=== PATIENT | female | born 1985 | race Caucasian/White ===

== ENCOUNTER 2021-06-26 12:13 | Emergency (ER) | payer OTHER, MEDICAID, SELFPAY ==
[2021-06-26] VITALS (15 sets, daily range): BP systolic 101–135; BP diastolic 56–75; PULSE 71–94; RESP 12–20; TEMP 36.6; O2SAT 96–100; BMI 17.7
[2021-06-26 13:16] LABS: Add Manual Diff / Slide Review NO; Basophils Absolute Auto 100 /uL (0-100); Basophils Percent Auto 0.7 % (0-2); Eosinophils Absolute Auto 100 /uL (0-450); Eosinophils Percent Auto 1.5 % (2-4); Hematocrit 37.1 % (36-46); Hemoglobin 12.6 g/dL (12.0-16.0); Lymphocytes Absolute Auto 1400 /uL (1100-4500); Lymphocytes Percent Auto 18.9 % (25-40); Mean Corpuscular HGB Conc 34.1 % (30-36); Mean Corpuscular Hemoglobin 31.8 PG (26-34); Mean Corpuscular Volume 93.2 fL (80-100); Monocytes Absolute Auto 700 /uL (0-900); Monocytes Percent Auto 8.9 % (3-14); Neutrophils Absolute Auto 5400 /uL (1500-7000); Platelet Count 204 X10^3/uL (150-400); Red Blood Cell Count 3.98 X10^6/uL (4.0-5.2); Red Cell Distribution Width 12.3 % (11.6-14.8); White Blood Cell Count 7.7 X10^3/uL (4.5-11.0)
[2021-06-26 13:18] LABS: Alanine Aminotransferase 14 IU/L (<35); Albumin 4.5 g/dL (3.5-5.0); Albumin Globulin Ratio 1.7 (1.0-2.8); Alkaline Phosphatase 37 U/L (38-126); Aspartate Aminotransferase 33 IU/L (14-36); BUN Creatinine Ratio 16.4 (6-22); Bilirubin Total 0.4 mg/dL (0.2-1.3); Blood Urea Nitrogen 12 mg/dL (7-17); Calcium 9.4 mg/dL (8.4-10.2); Carbon Dioxide 30 mmol/L (22-32); Chloride 104 mmol/L (98-107); Estimated Glomerular Filt Rate > 60.0 mL/min (>60); Globulin 2.7 g/dL (1.7-4.1); Glucose 72 mg/dL (70-100); HEMOLYSIS 17 (0-50); Lipase 60 U/L (23-300); Potassium 3.8 mmol/L (3.4-5.1); Sodium 138 mmol/L (137-145); Total Protein 7.2 g/dL (6.3-8.2)
[2021-06-26] MEDS: SODIUM CHLORIDE 0.9% 1,000 ML 1000 ML IV (13:19)
[2021-06-26 13:26] LABS: COVID19 -Nasal RAPID Negative (Negative)
--- NOTE | 2021-06-26 13:44 | DI.CT.S_ITS ---
PROCEDURE: CT ABDOMEN PELVIS W CON INDICATIONS: Abdominal pain, diarrhea TECHNIQUE: After the administration of IV contrast, axial sections were acquired from the lung bases to the pubic symphysis. Coronal and sagittal reformats were performed. For radiation dose reduction, the following was used: automated exposure control, adjustment of mA and/or kV according to patient size. COMPARISON: None. FINDINGS: Image quality: Excellent. Lung bases: Unremarkable. Heart: Heart is normal in size. ABDOMEN: Liver: No mass lesion. Gallbladder: Within normal limits without gallstones. Biliary ducts: No biliary ductal dilatation. Pancreas: Unremarkable. Spleen: Normal in size. Adrenal Glands: No adrenal nodules. Kidneys and Ureters: No hydronephrosis. Stomach and Bowel: Stomach and small bowel loops are normal in caliber and wall thickness. No evidence of appendicitis. There is mild segmental wall thickening of the distal transverse , descending, and sigmoid colon compatible with a mild colitis. Peritoneum: No abnormal intraperitoneal fluid. No free air. Ventral Wall: No hernia. Abdominal Nodes: No retroperitoneal or mesenteric adenopathy by size criteria. Vessels: Aorta and inferior vena cava are normal in size. PELVIS: Pelvic Organs: The right ovary is surgically absent. The left ovary is enlarged, measuring up to approximately 6.1 x 3.3 x 2.0 cm with multiple cysts measuring up to 2.0 cm. There is enhancement along the endometrium within the uterus predominantly in the fundus with indistinct margins. There is a small amount of endometrial fluid. Within the fundus, there is an irregular fluid collection along the right aspect of the endometrium, measuring up to approximately 2.6 x 1.2 x 1.1 cm. Bladder: Unremarkable. Pelvic Nodes: No enlarged lymph nodes. Miscellaneous: No inguinal hernias are seen. Bones: Visualized osseous structures demonstrate no suspicious focal lesions. IMPRESSION: 1. Enhancement along the endometrium within the uterus predominantly in the fundus. Findings are suspicious for an endometritis. 2. Lobulated right paracentral irregular fluid collection within the fundus is nonspecific and the differential includes a degenerating fibroid versus a possible intrauterine abscess. Recommend further evaluation with a pelvic ultrasound. 3. Enlargement of the left ovary with multiple left ovarian cysts. Recommend further evaluation with ultrasound. 4. Mild segmental wall thickening of the distal colon suggestive of a mild colitis. Dictated by: Melchor Garcia M.D. on 06/26/2021 at 14:36 Approved by: Melchor Garcia M.D. on 06/26/2021 at 14:47
--- NOTE | 2021-06-26 14:06 | ED.ABDPAIN ---
HPI - Abdominal Pain <Kenn Alexander PA-C - Last Filed: 06/26/21 20:06> General Chief Complaint: Abdominal Pain Stated Complaint: Augmentin,N/V/D Time Seen by Provider: 06/26/21 12:31 Source: patient Mode of arrival: Ambulatory History of Present Illness HPI narrative: Patient is a 35-year-old female with a history of polycystic ovarian syndrome presenting to the emergency department today for an evaluation abdominal pain, diarrhea, and nausea. Patient states that she began taking Augmentin on 05/30/2021 for a dental abscess. She states that within 3 days of taking the Augmentin she began to experience diarrhea. She states that she has experienced ongoing symptoms of nausea, diarrhea, and abdominal cramping since that time. Additionally, she notes that she has experienced episodes of nonbloody emesis over the past 2 weeks. Of note, patient states that she has experienced vaginal pain and swelling since this morning and states that she experienced an episode of ?heart flutters? yesterday. Patient denies fever, chills, chest pain, cough, shortness of breath, dysuria, diaphoresis, vaginal discharge, vaginal bleeding, or any other concerning symptoms. No further concerns were voiced at this time. Related Data Home Medications Medication Instructions Recorded Confirmed hydroxyzine HCl 10 mg tablet #0 09/05/16 Previous Rx's Medication Instructions Recorded cyclobenzaprine 10 mg tablet 10 mg PO Q8HP PRN #20 tab 09/05/16 prednisone 50 mg tablet 50 mg PO [facility] #5 tab 09/05/16 dicyclomine 20 mg tablet 20 mg PO BID #20 tab 06/26/21 ondansetron 4 mg disintegrating 4 mg PO Q6H PRN #30 tab 06/26/21 tablet Allergies Allergy/AdvReac Type Severity Reaction Status Date / Time chocolate flavor Allergy Severe throat Verified 06/26/21 13:19 [CHOCOLATE FLAVOR] swelling, dyspnea ciprofloxacin [From CIPRO] Allergy Unknown rash Verified 06/26/21 13:19 codeine [CODEINE] Allergy Unknown nausea Verified 06/26/21 13:19 doxycycline [DOXYCYCLINE] Allergy Unknown dyspnea, Verified 06/26/21 13:19 rash latex [LATEX] Allergy Unknown itchy, Verified 06/26/21 13:19 hives morphine [MORPHINE] Allergy Unknown SWELLING, Verified 06/26/21 13:19 blisters on face, mouth nose Sulfa (Sulfonamide Allergy Unknown dyspnea, Verified 06/26/21 13:19 Antibiotics) rash [SULFA (SULFONAMIDE ANTIBIOTICS)] Review of Systems <Kenn Alexander PA-C - Last Filed: 06/26/21 20:06> Constitutional Constitutional: Denies chills, Denies fatigue, Denies fever(s), Denies frequent falls, Denies lethargy and Denies weakness Eyes Eyes: Denies loss of vision ENT Ears, Nose, Mouth, and Throat: Denies dizziness and Denies neck pain Cardiovascular Cardiovascular: Denies chest pain, Reports irregular heart rhythm, Denies lightheadedness, Denies palpitations, Denies dyspnea, Denies dyspnea on exertion and Denies orthopnea Respiratory Respiratory: Denies cough, Denies dyspnea, Denies dyspnea on exertion and Denies wheezing Gastrointestinal Gastrointestinal: Reports abdominal pain, Denies change in bowel habits, Reports diarrhea, Reports nausea and Reports vomiting Genitourinary Genitourinary: Denies hematuria, Denies dysuria, Denies flank pain, Denies urinary incontinence, Denies urinary urgency, Denies vaginal discharge and Reports other (Vaginal pain and swelling) Musculoskeletal Musculoskeletal: Denies back pain, Denies muscle weakness, Denies neck pain, Denies numbness and Denies tingling Integumentary/Breasts Skin/Breast: Denies pruritus, Denies erythema, Denies rash and Denies wounds Neurologic Neurologic: Denies behavioral changes, Denies confusion, Denies dizziness, Denies frequent falls, Denies loss of vision, Denies numbness, Denies tingling and Denies weakness Psychiatric Psychiatric: Denies behavioral changes and Denies confusion Endocrine Endocrine: Denies fatigue and Denies palpitations Allergic/Immunologic Allergic/Immunologic: Denies wheezing Patient History <Kenn Alexander PA-C - Last Filed: 06/26/21 20:06> Social History Smoking Status: Never smoker Smoking Status: Never smoker Substance Use Type: does not use Exam <Kenn Alexander PA-C - Last Filed: 06/26/21 20:06> Narrative Exam Narrative: GENERAL: 35 year old patient appears stated age. Well-developed patient, in mild distress. HEAD: Atraumatic. Normocephalic. EYES: Pupils equal round and reactive. Extraocular motions intact. No scleral icterus. No injection or drainage. ENT: Nose without bleeding, purulent drainage. Throat without erythema, tonsillar hypertrophy or exudate. Airway patent. NECK: Trachea midline. Non tender CARDIOVASCULAR: Regular rate and rhythm without murmurs, gallops, or rubs. RESPIRATORY: Clear to auscultation. Breath sounds equal bilaterally. No wheezes, rales, or rhonchi. GASTROINTESTINAL: Abdomen soft, nondistended. Tenderness to palpation noted in the left upper quadrant, left lower quadrant, and right lower quadrant. No masses noted. Surgical scar noted from previous right-sided salpingo-oophorectomy in February of 2007. EXTREMITIES: No edema or joint tenderness. BACK: Nontender without deformity or crepitance. No flank tenderness. NEURO: AOx3. SKIN: No rash or erythema of visible areas Initial Vital Signs Initial Vital Signs: Vital Signs Temperature 97.8 F 06/26/21 12:25 Pulse Rate 89 06/26/21 12:25 Respiratory Rate 18 06/26/21 12:25 Blood Pressure 122/75 06/26/21 12:25 Pulse Oximetry 99 06/26/21 12:25 External Female Exam: normal external appearance Speculum Exam - Vagina: normal appearance of the vagina Speculum Exam - Cervix: normal appearance of the cervix Bimanual Exam- Vagina & Uterus: normal bimanual exam <Bonny Lynch DO - Last Filed: 06/27/21 07:01> Initial Vital Signs Initial Vital Signs: Vital Signs Temperature 97.8 F 06/26/21 12:25 Pulse Rate 89 06/26/21 12:25 Respiratory Rate 18 06/26/21 12:25 Blood Pressure 122/75 06/26/21 12:25 Pulse Oximetry 99 06/26/21 12:25 Course <Kenn Alexander PA-C - Last Filed: 06/26/21 20:06> Course Course Narrative: CBC, CMP, lipase, urine dip COVID test, CT of the abdomen pelvis, pelvic ultrasound obtained. IV a 1000 mL normal saline bolus administered, 4 mg IV Zofran administered, PO bentyl administered. Orders Ordered: Discontinued Medications Dicyclomine HCl (Dicyclomine 10 Mg Capsule) 20 mg PO NOW ONE Stop: 06/26/21 17:07 Last Admin: 06/26/21 17:29 Dose: 20 mg Documented by: BRAD Sodium Chloride (Normal Saline 0.9%) 1,000 mls @ 1,000 mls/hr IV BOLUS ONE Stop: 06/26/21 13:59 Last Infusion: 06/26/21 14:20 Dose: 0 mls/hr Documented by: Admin: 06/26/21 13:19 Dose: 1,000 mls/hr Documented by: KRISTA Ondansetron HCl (Ondansetron 4 Mg/2 Ml Inj) 4 mg IV NOW ONE Stop: 06/26/21 13:42 Last Admin: 06/26/21 14:12 Dose: 4 mg Documented by: BRAD Consultations Consultation #1: Consultation with Dr. Naik. Dr. Naik reviewed ultrasound and CT imaging and states that he will follow-up with patient in office next week. Time: 17:00 Vital Signs Vital signs: Vital Signs - 8 hr 06/26/21 12:25 06/26/21 12:36 06/26/21 12:38 Temperature 97.8 F Pulse Rate 89 84 81 Respiratory Rate 18 14 Blood Pressure 122/75 122/75 Pulse Oximetry 99 100 99 06/26/21 13:00 06/26/21 13:49 06/26/21 14:00 Temperature Pulse Rate 74 71 77 Respiratory Rate 19 15 Blood Pressure 111/70 Pulse Oximetry 98 100 100 06/26/21 14:02 06/26/21 14:30 06/26/21 15:00 Temperature Pulse Rate 74 73 94 H Respiratory Rate 12 20 19 Blood Pressure 135/65 108/57 L 112/58 L Pulse Oximetry 99 97 98 06/26/21 15:30 06/26/21 15:33 06/26/21 16:00 Temperature Pulse Rate 75 79 75 Respiratory Rate 20 18 18 Blood Pressure 108/61 120/62 Pulse Oximetry 96 98 96 06/26/21 16:30 06/26/21 17:00 06/26/21 17:01 Temperature Pulse Rate 76 83 78 Respiratory Rate 17 Blood Pressure 101/56 L 118/69 Pulse Oximetry 96 96 99 <Bonny Lynch, - Last Filed: 06/27/21 07:01> Orders Ordered: Discontinued Medications Dicyclomine HCl (Dicyclomine 10 Mg Capsule) 20 mg PO NOW ONE Stop: 06/26/21 17:07 Last Admin: 06/26/21 17:29 Dose: 20 mg Documented by: BRAD Sodium Chloride (Normal Saline 0.9%) 1,000 mls @ 1,000 mls/hr IV BOLUS ONE Stop: 06/26/21 13:59 Last Infusion: 06/26/21 14:20 Dose: 0 mls/hr Documented by: Admin: 06/26/21 13:19 Dose: 1,000 mls/hr Documented by: KRISTA Ondansetron HCl (Ondansetron 4 Mg/2 Ml Inj) 4 mg IV NOW ONE Stop: 06/26/21 13:42 Last Admin: 06/26/21 14:12 Dose: 4 mg Documented by: BRAD Vital Signs Vital signs: Vital Signs - 8 hr 06/26/21 12:25 06/26/21 12:36 06/26/21 12:38 Temperature 97.8 F Pulse Rate 89 84 81 Respiratory Rate 18 14 Blood Pressure 122/75 122/75 Pulse Oximetry 99 100 99 06/26/21 13:00 06/26/21 13:49 06/26/21 14:00 Temperature Pulse Rate 74 71 77 Respiratory Rate 19 15 Blood Pressure 111/70 Pulse Oximetry 98 100 100 06/26/21 14:02 06/26/21 14:30 06/26/21 15:00 Temperature Pulse Rate 74 73 94 H Respiratory Rate 12 20 19 Blood Pressure 135/65 108/57 L 112/58 L Pulse Oximetry 99 97 98 06/26/21 15:30 06/26/21 15:33 06/26/21 16:00 Temperature Pulse Rate 75 79 75 Respiratory Rate 20 18 18 Blood Pressure 108/61 120/62 Pulse Oximetry 96 98 96 06/26/21 16:30 06/26/21 17:00 06/26/21 17:01 Temperature Pulse Rate 76 83 78 Respiratory Rate 17 Blood Pressure 101/56 L 118/69 Pulse Oximetry 96 96 99 MDM - Abdominal Pain <Kenn Alexander PA-C - Last Filed: 06/26/21 20:06> Lab Data Result diagrams: 06/26/21 12:40 06/26/21 12:40 Labs: Lab Results 06/26/21 06/26/21 06/26/21 Range/Units 12:40 12:40 12:40 WBC 7.7 (4.5-11.0) X10^3/uL RBC 3.98 L (4.0-5.2) X10^6/uL Hgb 12.6 (12.0-16.0) g/dL Hct 37.1 (36-46) % MCV 93.2 (80-100) fL MCH 31.8 (26-34) PG MCHC 34.1 (30-36) % RDW 12.3 (11.6-14.8) % Plt Count 204 (150-400) X10^3/uL Neut % (Auto) 70.0 (50-75) % Lymph % (Auto) 18.9 L (25-40) % [place] % (Auto) 8.9 (3-14) % Eos % (Auto) 1.5 L (2-4) % Baso % (Auto) 0.7 (0-2) % Neut # (Auto) 5400 (8442-5062) /uL Lymph # (Auto) 1400 (4215-0973) /uL [place] # (Auto) 700 (0-900) /uL Eos # (Auto) 100 (0-450) /uL Baso # (Auto) 100 (0-100) /uL Sodium 138 (137-145) mmol/L Potassium 3.8 (3.4-5.1) mmol/L Chloride 104 (98-107) mmol/L Carbon Dioxide 30 (22-32) mmol/L BUN 12 (7-17) mg/dL Creatinine 0.73 (0.52-1.04) mg/dL Estimated GFR > 60.0 (>60) mL/min BUN/Creatinine Ratio 16.4 (6-22) Glucose 72 (70-100) mg/dL Calcium 9.4 (8.4-10.2) mg/dL Total Bilirubin 0.4 (0.2-1.3) mg/dL AST 33 (14-36) IU/L ALT 14 (<35) IU/L Alkaline Phosphatase 37 L (38-126) U/L Total Protein 7.2 (6.3-8.2) g/dL Albumin 4.5 (3.5-5.0) g/dL Globulin 2.7 (1.7-4.1) g/dL Albumin/Globulin Ratio 1.7 (1.0-2.8) Lipase 60 (23-300) U/L SARS-CoV-2 (PCR) Negative (Negative) Point of care testing: Point of Care Testing Test Results Negative Urine Dip Bedside Urine Glucose Negative Bedside Urine Bilirubin - Negative Bedside Urine Ketone - Negative Urine Specific Martinez 1.015 Bedside Urine Occult Blood - Negative Bedside Urine pH 6 Bedside Urine Protein - Negative Bedside Urine Urobilinogen - Negative Bedside Urine Nitrite - Negative Bedside Urine Leukocytes - Negative Esterase Imaging Data US - [place]: Radiologist's Impression: PROCEDURE:? US PELVIC COMPLETE ? INDICATIONS:? Pelvic pain ? TECHNIQUE:? Real-time scanning was performed of the pelvic organs, with image documentation.? Additional endovaginal scanning was necessary due to incomplete visualization of the adnexal and endometrial structures by transabdominal scanning.? ? COMPARISON:? None. ? FINDINGS:? ?? Uterus:? Anteverted uterus measures 10.4 x 4.4 x 6.7 cm. The myometrium is mildly heterogeneous.? No discrete uterine fibroid is seen.? The endometrium measures 10 mm combined thickness.? No discrete endometrial mass or fluid is seen. ? Ovaries:? Right ovary is surgically absent.? The left ovary measures 4.9 x 2.2 x 3.7 cm.? The ovaries have a normal sonographic appearance.? Left than 12 follicles can be seen in each ovary.? 1.9 x 1.5 x 1.8 cm simple cyst is seen in left ovary.? No adnexal masses are seen. ? Other:? No pathologic free abdominal or pelvic fluid. ? ? IMPRESSION:? 1. Mildly enlarged uterus with heterogeneous myometrial echotexture.? No discrete uterine fibroid is seen. 2. No endometrial mass or fluid. 3.? Right ovary is surgically absent.? Simple cyst in left ovary as above.? No solid appearing left ovarian lesion. ? We strive to produce accurate, complete, and clear reports of imaging services. To assist us in improving patient care, this report was composed using standard report templates and voice recognition software. Therefore, it may contain abnormal punctuation, insertions and/or omissions. Occasional wrong-word or sound-alike substitutions may occur. Though we review the report and make efforts to correct it, we do recommend that the report be read carefully in proper context to recognize any text inaccuracies. ? ? Dictated by: Andrez Joshi M.D. on 06/26/2021 at 15:58 ? ? Approved by: Andrez Joshi M.D. on 06/26/2021 at 16:00 ? CT scan - abdomen/pelvis: Radiologist's Impression: PROCEDURE:? CT ABDOMEN PELVIS W CON ? INDICATIONS:? Abdominal pain, diarrhea ? TECHNIQUE:? After the administration of IV contrast, axial sections were acquired from the lung bases to the pubic symphysis.? Coronal and sagittal reformats were performed.? For radiation dose reduction, the following was used:? automated exposure control, adjustment of mA and/or kV according to patient size. ? COMPARISON:? None. ? FINDINGS:? Image quality:? Excellent.? ? Lung bases:? Unremarkable.? ? Heart:? Heart is normal in size. ? ? ABDOMEN: Liver:? No mass lesion. Gallbladder:? Within normal limits without gallstones.? ? Biliary ducts:? No biliary ductal dilatation.? ? Pancreas:? Unremarkable.? ? Spleen:? Normal in size.? ? Adrenal Glands:? No adrenal nodules.? ? Kidneys and Ureters:? No hydronephrosis.? ? ? Stomach and Bowel:? Stomach and small bowel loops are normal in caliber and wall thickness.? No evidence of appendicitis.? There is mild segmental wall thickening of the distal transverse , descending, and sigmoid colon compatible with a mild colitis.? Peritoneum:? No abnormal intraperitoneal fluid.? No free air.? ? Ventral Wall: ? No hernia.? Abdominal Nodes:? No retroperitoneal or mesenteric adenopathy by size criteria.? Vessels:? Aorta and inferior vena cava are normal in size.? ? PELVIS: Pelvic Organs:? The right ovary is surgically absent.? The left ovary is enlarged, measuring up to approximately 6.1 x 3.3 x 2.0 cm with multiple cysts measuring up to 2.0 cm.? There is enhancement along the endometrium within the uterus predominantly in the fundus with indistinct margins.? There is a small amount of endometrial fluid.? Within the fundus, there is an irregular fluid collection along the right aspect of the endometrium, measuring up to approximately 2.6 x 1.2 x 1.1 cm.? Bladder:? Unremarkable.? ? Pelvic Nodes: No enlarged lymph nodes.? Miscellaneous: No inguinal hernias are seen. ? ? ? Bones:? Visualized osseous structures demonstrate no suspicious focal lesions. ? IMPRESSION:? ? 1. Enhancement along the endometrium within the uterus predominantly in the fundus.? Findings are suspicious for an endometritis. ? 2. Lobulated right paracentral irregular fluid collection within the fundus is nonspecific and the differential includes a degenerating fibroid versus a possible intrauterine abscess.? Recommend further evaluation with a pelvic ultrasound. ? 3. Enlargement of the left ovary with multiple left ovarian cysts.? Recommend further evaluation with ultrasound. ? 4. Mild segmental wall thickening of the distal colon suggestive of a mild colitis.? ? ? Dictated by: Melchor Garcia M.D. on 06/26/2021 at 14:36 ? ? Approved by: Melchor Garcia M.D. on 06/26/2021 at 14:47 ? MDM Narrative Medical decision making narrative: To consider appendicitis versus diverticulitis versus ovarian cyst versus endometriosis versus endometritis versus pelvic inflammatory disease. Overall, physical examination, history, lab studies, and imaging obtained in the emergency department today were reassuring. Discussed results of lab studies and imaging with patient informed her that no acute abnormality was identified today that require emergent intervention. Additionally, informed the patient that pelvic exam and bimanual examination performed were unremarkable. Discussed with patient plan to have her follow-up with Dr. Naik. Patient expresses understanding and agrees to plan. At this time she states she feels comfortable being discharged home. Strict return precautions were discussed with the patient prior to discharge. At this time patient is stable and ready for discharge. <Bonny Lynch, DO - Last Filed: 06/27/21 07:01> Lab Data Labs: Lab Results 06/26/21 06/26/21 06/26/21 Range/Units 12:40 12:40 12:40 WBC 7.7 (4.5-11.0) X10^3/uL RBC 3.98 L (4.0-5.2) X10^6/uL Hgb 12.6 (12.0-16.0) g/dL Hct 37.1 (36-46) % MCV 93.2 (80-100) fL MCH 31.8 (26-34) PG MCHC 34.1 (30-36) % RDW 12.3 (11.6-14.8) % Plt Count 204 (150-400) X10^3/uL Neut % (Auto) 70.0 (50-75) % Lymph % (Auto) 18.9 L (25-40) % [place] % (Auto) 8.9 (3-14) % Eos % (Auto) 1.5 L (2-4) % Baso % (Auto) 0.7 (0-2) % Neut # (Auto) 5400 (2718-4170) /uL Lymph # (Auto) 1400 (2456-8438) /uL [place] # (Auto) 700 (0-900) /uL Eos # (Auto) 100 (0-450) /uL Baso # (Auto) 100 (0-100) /uL Sodium 138 (137-145) mmol/L Potassium 3.8 (3.4-5.1) mmol/L Chloride 104 (98-107) mmol/L Carbon Dioxide 30 (22-32) mmol/L BUN 12 (7-17) mg/dL Creatinine 0.73 (0.52-1.04) mg/dL Estimated GFR > 60.0 (>60) mL/min BUN/Creatinine Ratio 16.4 (6-22) Glucose 72 (70-100) mg/dL Calcium 9.4 (8.4-10.2) mg/dL Total Bilirubin 0.4 (0.2-1.3) mg/dL AST 33 (14-36) IU/L ALT 14 (<35) IU/L Alkaline Phosphatase 37 L (38-126) U/L Total Protein 7.2 (6.3-8.2) g/dL Albumin 4.5 (3.5-5.0) g/dL Globulin 2.7 (1.7-4.1) g/dL Albumin/Globulin Ratio 1.7 (1.0-2.8) Lipase 60 (23-300) U/L SARS-CoV-2 (PCR) Negative (Negative) Point of care testing: Point of Care Testing Test Results Negative Urine Dip Bedside Urine Glucose Negative Bedside Urine Bilirubin - Negative Bedside Urine Ketone - Negative Urine Specific Martinez 1.015 Bedside Urine Occult Blood - Negative Bedside Urine pH 6 Bedside Urine Protein - Negative Bedside Urine Urobilinogen - Negative Bedside Urine Nitrite - Negative Bedside Urine Leukocytes - Negative Esterase Discharge Plan Departure Patient Disposition: Home Clinical Impression: Abdominal pain, Pelvic pain Instructions: DI for Abdominal Pain-Adult Activity Restrictions/Additional Instructions: *You have been diagnosed with abdominal pain, pelvic pain *What to do: *Please continue to take your regular medications as directed. [X] New medication prescriptions sent to your pharmacy: [facility] [ ] New medication written as a paper prescription [ ] No new medications given Ultrasound and CT imaging obtained in the emergency department today returned reassuring without any signs of acute abnormality that would require emergent intervention. I had a consultation with Dr. Naik (OBGYN) and he would like to follow-up with you in his office sometime next week. If you do not hear from his office you may call the office number at . I have prescribed a course of medications to help with your abdominal cramping (Leo) and nausea (Maddison). I recommend following up with the primary care provider within the next to 3 days for further evaluation. Do not hesitate to return to the emergency department if you experience worsening pain, increased vaginal discharge, fever, or any other concerning symptoms. *Please follow up with your primary care provider in 2-3 days, call for an appointment. Let them know you were seen in the Emergency Department and that we ask that you be seen in follow up. We will electronically transmit a record of today's note if your PCP is in our system *If you do not have a primary care provider please contact the [facility] Resource line at [phone]. They will ask some questions about your medical history and help get you set up with a doctor in the community. *Return to Emergency Department if you should have any new, worsening or concerning symptoms, such as fever greater than 101 F, shaking chills, worsening pain, persistent vomiting or other bothersome symptoms. Prescriptions: New dicyclomine 20 mg tablet 20 mg PO BID Qty: 20 0RF ondansetron 4 mg tablet,disintegrating 4 mg PO Q6H PRN (Reason: nausea and vomiting) Qty: 30 0RF No Action hydroxyzine HCl 10 mg tablet Qty: 0 0RF cyclobenzaprine 10 MG tablet 10 mg PO Q8HP PRNQty: 20 0RF prednisone 50 MG tablet 50 mg PO [facility] Qty: 5 0RF <Bonny Lynch DO - Last Filed: 06/27/21 07:01> Cosign ED Attending Cosignature Attestation: I was immediately available in the department for consultation. Documentation has been reviewed. I agree with assessment and plan.
[2021-06-26] MEDS: ONDANSETRON 4 MG/2 ML INJ IV (14:12)
--- NOTE | 2021-06-26 15:20 | DI.US.S_ITS ---
PROCEDURE: US PELVIC COMPLETE INDICATIONS: Pelvic pain TECHNIQUE: Real-time scanning was performed of the pelvic organs, with image documentation. Additional endovaginal scanning was necessary due to incomplete visualization of the adnexal and endometrial structures by transabdominal scanning. COMPARISON: None. FINDINGS: Uterus: Anteverted uterus measures 10.4 x 4.4 x 6.7 cm. The myometrium is mildly heterogeneous. No discrete uterine fibroid is seen. The endometrium measures 10 mm combined thickness. No discrete endometrial mass or fluid is seen. Ovaries: Right ovary is surgically absent. The left ovary measures 4.9 x 2.2 x 3.7 cm. The ovaries have a normal sonographic appearance. Left than 12 follicles can be seen in each ovary. 1.9 x 1.5 x 1.8 cm simple cyst is seen in left ovary. No adnexal masses are seen. Other: No pathologic free abdominal or pelvic fluid. IMPRESSION: 1. Mildly enlarged uterus with heterogeneous myometrial echotexture. No discrete uterine fibroid is seen. 2. No endometrial mass or fluid. 3. Right ovary is surgically absent. Simple cyst in left ovary as above. No solid appearing left ovarian lesion. We strive to produce accurate, complete, and clear reports of imaging services. To assist us in improving patient care, this report was composed using standard report templates and voice recognition software. Therefore, it may contain abnormal punctuation, insertions and/or omissions. Occasional wrong-word or sound-alike substitutions may occur. Though we review the report and make efforts to correct it, we do recommend that the report be read carefully in proper context to recognize any text inaccuracies. Dictated by: Andrez Joshi M.D. on 06/26/2021 at 15:58 Approved by: Andrez Joshi M.D. on 06/26/2021 at 16:00
--- NOTE | 2021-06-26 17:03 | PC.NURSE ---
[id number] set up for pelvic exam and radha vitcor for exam. swabs obtained and walked to lab. pt tolerated exam well no distress
[2021-06-26] MEDS: DICYCLOMINE 10 MG CAPSULE 20 MG PO (17:29)
== END 2021-06-26 17:35 | disposition home or self-care (01) ==
PROVIDERS: Emergency Provider Physician Assistant
DX: R10.30 Lower abdominal pain, unspecified (principal); R10.12 Left upper quadrant pain; R10.2 Pelvic and perineal pain; R11.2 Nausea with vomiting, unspecified; R19.7 Diarrhea, unspecified; R00.2 Palpitations; Z20.822 Contact with and (suspected) exposure to COVID-19
CPT/HCPCS: 36415; 74177; 76830; 76856; 80053; 81003; 81025; 83690; 85025; 87635; 93005; 93010; 96360; 99285; C9803; J2405; Q9967

== ENCOUNTER → 2023-12-20 11:56 | Outpatient (CLI) | payer OTHER, SELFPAY ==
--- NOTE | 2023-12-20 | DI.MRI.S_ITS ---
PROCEDURE: MR CERVICAL SPINE WO CON INDICATIONS: Cervicalgia TECHNIQUE: Noncontrast sagittal T1 spin echo and T2 fast spin echo, sagittal STIR, foraminal oblique sagittal T2 fast spin echo, and axial gradient echo or T2 fast spin echo through the cervical spine. COMPARISON: None. FINDINGS: Image quality: Excellent. Alignment and Curvature: There is mild straightening of normal cervical lordosis. Bone Marrow: Likely Modic type 2 degenerative endplate changes are noted at C5-6 level. No other area of abnormal marrow signal. No suspicious intraosseous lesion. Spinal Cord: Visualized spinal cord has normal size and signal. No cerebellar tonsillar herniation. Paraspinous Soft Tissues: No paravertebral masses. Prevertebral soft tissues are normal in thickness. C2-C3: Normal appearance. C3-C4: Normal appearance. C4-C5: Loss of disc signal is seen. Diffuse disc bulge and bilateral uncovertebral hypertrophic changes are noted causing mild central canal stenosis and moderate right-sided neural foraminal narrowing. C5-C6: Loss of disc height and disc signal. Broad-based disc bulge and bilateral uncovertebral hypertrophic changes causing moderate central canal stenosis and moderate to severe right-sided neural foraminal narrowing. [id number] left-sided neural foraminal narrowing is also seen. There is likely compression of exiting bilateral C6 nerve roots. C6-C7: Central to left-sided disc herniation and extrusion causing moderate central canal stenosis and severe narrowing of left neural recess. C7-T1: Normal appearance. IMPRESSION: 1. Central to left-sided disc herniation and extrusion at C6-7 level causing moderate central canal stenosis and severe narrowing of left neural recess. 2. Obev-du-jateiwup degenerative disc disease at C4-5 and C5-6 levels causing various degrees of central canal stenosis and bilateral neural foraminal narrowing as described above. 3. No marrow edema. No acute compression fracture or significant spondylolisthesis. Straightening of normal cervical lordosis. 4. No abnormal cervical spinal cord signal. Dictated by: Andrez Joshi M.D. on 12/20/2023 at 18:03 Approved by: Andrez Joshi M.D. on 12/20/2023 at 18:09
== END ==
LOC: MRI 11:58
PROVIDERS: Referring Provider Neurological Surgery; Visit Provider Neurological Surgery
DX: M50.223 Other cervical disc displacement at C6-C7 level (principal); M50.321 Other cervical disc degeneration at C4-C5 level; M48.02 Spinal stenosis, cervical region
CPT/HCPCS: 72141

== ENCOUNTER → 2024-03-23 16:20 | Outpatient (CLI) | payer BC, SELFPAY ==
[2024-03-23 17:07] LABS: Influenza A - CEPHEID Flu A NEGATIVE (NEGATIVE); Influenza B - CEPHEID Flu B NEGATIVE (NEGATIVE); Respiratory Syncytial Virus Negative (Negative)
[2024-03-23 17:33] LABS: COVID-19 CEPHEID 4-PLEX PCR Negative (Negative)
== END ==
PROVIDERS: Visit Provider Nurse Practitioner Family
DX: R05.1 Acute cough (principal); J02.9 Acute pharyngitis, unspecified; R09.81 Nasal congestion
CPT/HCPCS: 0241U; 87070

== ENCOUNTER 2024-10-02 19:43 | Emergency (ER) | payer SELFPAY ==
[2024-10-02 19:46] VITALS: BP 121/79; PULSE 79; RESP 18; TEMP 36.8; O2SAT 99; BMI 18.6
[2024-10-02] MEDS: ONDANSETRON 4 MG/2 ML INJ IV ×2 (20:23→23:22)
[2024-10-02 20:34] LABS: Add Manual Diff / Slide Review NO; Basophils Absolute Auto 0 /uL (0-100); Basophils Percent Auto 0.2 % (0-2); Eosinophils Absolute Auto 0 /uL (0-450); Eosinophils Percent Auto 0.2 % (2-4); Hematocrit 39.8 % (36-46); Hemoglobin 13.6 g/dL (12.0-16.0); Lymphocytes Absolute Auto 1200 /uL (1100-4500); Lymphocytes Percent Auto 11.7 % (25-40); Mean Corpuscular HGB Conc 34.3 % (30-36); Mean Corpuscular Hemoglobin 31.9 PG (26-34); Monocytes Absolute Auto 800 /uL (0-900); Monocytes Percent Auto 7.9 % (3-14); Neutrophils Absolute Auto 8000 /uL (1500-7000); Platelet Count 232 X10^3/uL (150-400); Red Blood Cell Count 4.27 X10^6/uL (4.0-5.2); Red Cell Distribution Width 12.7 % (11.6-14.8)
[2024-10-02 20:42] LABS: Alanine Aminotransferase 15 IU/L (<35); Albumin 4.9 g/dL (3.5-5.0); Albumin Globulin Ratio 1.6 (1.0-2.8); Alkaline Phosphatase 46 U/L (38-126); Aspartate Aminotransferase 29 IU/L (14-36); BUN Creatinine Ratio 26.3 (6-22); Bilirubin Total 0.8 mg/dL (0.2-1.3); Blood Urea Nitrogen 15 mg/dL (7-17); Calcium 9.5 mg/dL (8.4-10.2); Carbon Dioxide 20 mmol/L (22-32); Chloride 103 mmol/L (98-107); Estimated Glomerular Filt Rate > 60 mL/min (>60); Globulin 3.1 g/dL (1.7-4.1); Glucose 92 mg/dL (70-99); HEMOLYSIS 20 (0-50); Potassium 3.8 mmol/L (3.4-5.1); Sodium 135 mmol/L (137-145)
--- NOTE | 2024-10-02 20:44 | DI.US.S_ITS ---
PROCEDURE: US OB <= 14 WEEKS FETUS INDICATIONS: bleeding OUTSIDE/PRIOR DATING DATA: Last menstrual period (LMP): 09/10/2024. LMP-based estimated date of delivery (MEAGHAN): 06/17/2025. First dating scan (date and location): 10/02/2024. Estimated date of delivery (MEAGHAN) from first dating scan: 05/06/2025. The calculations are made using the ultrasound MEAGHAN of 05/06/2025. TECHNIQUE: Real-time scanning was performed of the fetus and maternal pelvic organs, with image documentation. Endovaginal scanning was also performed to better visualize the fetus and maternal ovaries. COMPARISON: None. FINDINGS: Embryo: [place]-rump length measuring 2.5 cm, gestational age 9 weeks 1 day. Heart rate: 175 bpm. Maternal organs: Ovaries right ovary is absent. Left ovary is unremarkable. IMPRESSION: 1. Campbell living intrauterine at 9 weeks 1 day based on today's crown rump length. 2. No perigestational hemorrhage. We strive to produce accurate, complete, and clear reports of imaging services. To assist us in improving patient care, this report was composed using standard report templates and voice recognition software. Therefore, it may contain abnormal punctuation, insertions and/or omissions. Occasional wrong-word or sound-alike substitutions may occur. Though we review the report and make efforts to correct it, we do recommend that the report be read carefully in proper context to recognize any text inaccuracies. Dictated by: Rajan Benitez M.D. on 10/02/2024 at 23:12 Approved by: Rajan Benitez M.D. on 10/02/2024 at 23:16
[2024-10-02 21:02] LABS: Bacteria Urine Moderate (10-30); Mucus Urine 2+ (Negative); RBC Urine 0-1/HPF (0-5/HPF); Squamous Epithelial Cell Urine 5-10 /HPF (0-5/HPF); Urine Volume 10mL (spun); WBC Urine 0-1/HPF (0-5/HPF)
[2024-10-02 21:03] LABS: Culture Indicated Urine Cult Not Indicated
[2024-10-02 22:16] LABS: HCG Quantitative /Beta subunit 176960 mIU/mL
[2024-10-02 23:24] VITALS: BP 121/73; PULSE 84; RESP 18; O2SAT 96
[2024-10-02 23:30] VITALS: BP 115/59; PULSE 78; O2SAT 96
--- NOTE | 2024-10-02 23:34 | ED.FEMALEGU ---
HPI - Female Genitourinary General Chief complaint: Vaginal Bleeding Stated complaint: vaginal bleeding x21 days, body aches, sob Time Seen by Provider: 10/02/24 22:53 Source: patient Mode of arrival: Ambulatory History of Present Illness HPI Narrative: Patient is a 39-year-old female history of depression presenting today with variety of symptoms. Reports that she has had some nausea vomiting started last night unable to keep anything down now. Having some mild abdominal cramping but no significant pain. Also reports vaginal bleeding for about 21 days. Says it was really heavy on the 1st day going through 2 pads or tampons an hour but then it slow down and was kind of off and on. Has had persistent spotting ever since. She has PCOS. She has a positive test in the ED but unaware she was . Reports that she occasionally smoke marijuana Related Data Previous Rx's Medication Instructions Recorded benzonatate 200 mg capsule 200 mg PO BID PRN cough #28 caps 03/23/24 ondansetron 4 mg disintegrating 4 mg PO Q8H PRN nausea and 10/03/24 tablet vomiting #10 tabs Allergies Allergy/AdvReac Type Severity Reaction Status Date / Time codeine [CODEINE] Allergy Unknown nausea Verified 03/23/24 16:18 doxycycline [DOXYCYCLINE] Allergy Unknown dyspnea, Verified 03/23/24 16:18 rash latex [LATEX] Allergy Unknown itchy, Verified 03/23/24 16:18 hives Sulfa (Sulfonamide Allergy Unknown dyspnea, Verified 03/23/24 16:18 Antibiotics) rash [SULFA (SULFONAMIDE ANTIBIOTICS)] Patient History Medical History PTSD (post-traumatic stress disorder) (~2014) Depression (~2014) Anxiety (~2014) Incomplete Surgical History Anesthesia History of right oophorectomy (~2006) Exam Initial Vital Signs Initial Vital Signs: Vital Signs Temperature 98.3 F 10/02/24 19:46 Pulse Rate 79 10/02/24 19:46 Respiratory Rate 18 10/02/24 19:46 Blood Pressure 121/79 10/02/24 19:46 Pulse Oximetry 99 10/02/24 19:46 Oxygen Delivery Method Room Air 10/02/24 19:46 GENERAL: Alert 39-year-old female and in no acute distress. HEENT: Head atraumatic,EOMI, pupils reactive, face symmetric, moist mucous membranes CARDIOVASCULAR: Regular rate and rhythm without murmurs, rubs or gallops. RESPIRATORY: Breath sounds equal bilaterally, no wheezes rales or rhonchi. ABDOMEN: Soft, nontender. Normoactive bowel sounds all 4 quadrants. No guarding or rebound. EXTREMITIES: Normal range of motion, no clubbing or edema. Neurovascularly intact NEUROLOGICAL: Alert and oriented x4.Normal gait and speech. Cranial nerves II through XII grossly intact. SKIN: Warm, dry, no laceration, no petechiae, no rashes or lesions. Course Orders Ordered: ED Orders 10/02/24 20:16 Complete Blood Count AUTO DIFF Stat Comprehensive Metabolic Panel Stat HCG Quantitative /Beta subunit Stat Type and Screen Stat 10/02/24 20:39 Urine Microscopic Stat 10/02/24 20:44 US OB <= 14 weeks fetus Stat Discontinued Medications Sodium Chloride (Normal Saline 0.9%) 1,000 mls @ 1,000 mls/hr IV BOLUS ONE Stop: 10/03/24 00:41 Last Infusion: 10/03/24 00:43 Dose: Infused Documented By: Admin: 10/02/24 23:58 Dose: 1,000 mls/hr Documented By: MARY Ondansetron HCl (Ondansetron 4 Mg/2 Ml Inj) 4 mg IV NOW PRN PRN Reason: Nausea And Vomiting Last Admin: 10/02/24 20:23 Dose: 4 mg Documented By: MARY Ondansetron HCl (Ondansetron 4 Mg Odt) 4 mg PO NOW PRN PRN Reason: Nausea And Vomiting Ondansetron HCl (Ondansetron 4 Mg/2 Ml Inj) 4 mg IV NOW ONE Stop: 10/02/24 23:09 Last Admin: 10/02/24 23:22 Dose: 4 mg Documented By: MARY Vital Signs Vital signs: Vital Signs - 8 hr 10/02/24 19:46 10/02/24 23:24 10/02/24 23:24 Temperature 98.3 F Pulse Rate 79 84 Respiratory Rate 18 18 Blood Pressure 121/79 121/73 Pulse Oximetry 99 96 Oxygen Delivery Method Room Air Room Air 10/02/24 23:30 10/02/24 23:30 10/02/24 23:45 Temperature Pulse Rate 78 Respiratory Rate 18 Blood Pressure 115/59 L 109/66 Pulse Oximetry 96 Oxygen Delivery Method 10/02/24 23:45 10/03/24 00:00 10/03/24 00:00 Temperature Pulse Rate 77 73 Respiratory Rate Blood Pressure 112/59 L Pulse Oximetry 95 94 Oxygen Delivery Method 10/03/24 00:15 10/03/24 00:15 Temperature Pulse Rate 77 Respiratory Rate 17 Blood Pressure 103/59 L Pulse Oximetry 98 Oxygen Delivery Method Room Air MDM - Female Genitourinary Lab Data 10/02/24 20:16 10/02/24 20:16 Labs: Lab Results 10/02/24 10/02/24 Range/Units 20:16 20:39 WBC 10.0 (4.5-11.0) X10^3/uL RBC 4.27 (4.0-5.2) X10^6/uL Hgb 13.6 (12.0-16.0) g/dL Hct 39.8 (36-46) % MCV 93.0 (80-100) fL MCH 31.9 (26-34) PG MCHC 34.3 (30-36) % RDW 12.7 (11.6-14.8) % Plt Count 232 (150-400) X10^3/uL Neut % (Auto) 80.0 H (50-75) % Lymph % (Auto) 11.7 L (25-40) % [place] % (Auto) 7.9 (3-14) % Eos % (Auto) 0.2 L (2-4) % Baso % (Auto) 0.2 (0-2) % Neut # (Auto) 8000 H (3117-9961) /uL Lymph # (Auto) 1200 (5969-1626) /uL [place] # (Auto) 800 (0-900) /uL Eos # (Auto) 0 (0-450) /uL Baso # (Auto) 0 (0-100) /uL Sodium 135 L (137-145) mmol/L Potassium 3.8 (3.4-5.1) mmol/L Chloride 103 (98-107) mmol/L Carbon Dioxide 20 L (22-32) mmol/L BUN 15 (7-17) mg/dL Creatinine 0.57 (0.52-1.04) mg/dL Estimated GFR > 60 (>60) mL/min BUN/Creatinine Ratio 26.3 H (6-22) Glucose 92 (70-99) mg/dL Calcium 9.5 (8.4-10.2) mg/dL Total Bilirubin 0.8 (0.2-1.3) mg/dL AST 29 (14-36) IU/L ALT 15 (<35) IU/L Alkaline Phosphatase 46 (38-126) U/L Total Protein 8.0 (6.3-8.2) g/dL Albumin 4.9 (3.5-5.0) g/dL Globulin 3.1 (1.7-4.1) g/dL Albumin/Globulin Ratio 1.6 (1.0-2.8) HCG, Quant [id number] mIU/mL Urine RBC 0-1/hpf (0-5/HPF) Urine WBC 0-1/hpf (0-5/HPF) Ur Squamous Epith Cells 5-10 /hpf H (0-5/HPF) Urine Bacteria Moderate (10-30) H (None) Urine Mucus 2+ H (Negative) Ur Culture Indicated? Cult not indicated Vol Urine Centrifuged 10ml (spun) Blood Type A Positive Antibody Screen Negative Point of Care Testing Test Results Positive Urine Dip Bedside Urine Glucose Negative Bedside Urine Bilirubin - Negative Bedside Urine Ketone +++ 80 Urine Specific [place] 1.030 Bedside Urine Occult Blood +/- Bedside Urine pH 6.0 Bedside Urine Protein +/- 15 Bedside Urine Urobilinogen - Negative Bedside Urine Nitrite - Negative Bedside Urine Leukocytes - Negative Esterase Imaging Data US - OB: Radiologist's Impression: PROCEDURE: US OB <= 14 WEEKS FETUS INDICATIONS: bleeding OUTSIDE/PRIOR DATING DATA: Last menstrual period (LMP): 09/10/2024. LMP-based estimated date of delivery (MEAGHAN): 06/17/2025. First dating scan (date and location): 10/02/2024. Estimated date of delivery (MEAGHAN) from first dating scan: 05/06/2025. The calculations are made using the ultrasound MEAGHAN of 05/06/2025. TECHNIQUE: Real-time scanning was performed of the fetus and maternal pelvic organs, with image documentation. Endovaginal scanning was also performed to better visualize the fetus and maternal ovaries. COMPARISON: None. FINDINGS: Embryo: [place]-rump length measuring 2.5 cm, gestational age 9 weeks 1 day. Heart rate: 175 bpm. Maternal organs: Ovaries right ovary is absent. Left ovary is unremarkable. IMPRESSION: 1. Campbell living intrauterine at 9 weeks 1 day based on today's crown rump length. 2. No perigestational hemorrhage. We strive to produce accurate, complete, and clear reports of imaging services. To assist us in improving patient care, this report was composed using standard report templates and voice recognition software. Therefore, it may contain abnormal punctuation, insertions and/or omissions. Occasional wrong-word or sound-alike substitutions may occur. Though we review the report and make efforts to correct it, we do recommend that the report be read carefully in proper context to recognize any text inaccuracies. Dictated by: Rajan Benitez M.D. on 10/02/2024 at 23:12 MDM Narrative Medical decision making narrative: Patient 39-year-old female history of PCOS PTSD presenting to day with vaginal bleeding nausea vomiting. She was found to be in the ED which she did not know. Vomiting only started last night she did not have any other symptoms. She has been having on and off vaginal bleeding for the last 21 days. Sounds as though it was heavy a couple of weeks ago but now is just spotting daily. Mild abdominal cramping no severe tenderness Ultrasound confirms living IUP 9 weeks and 1 day with no perigestational hemorrhage HCG is 176,960 A positive no need for RhoGAM Other blood work within normal limits Patient has received a Zofran and a L of fluid. She was tolerating some adrian brown at this time. Discussion with her about following up with Ob pelvic rest until bleeding stops. Appropriate medications during . At this time continue Prozac but talk with OB about it. Discharge Plan Departure Patient Disposition: Home Clinical Impression: , Bleeding in early Instructions: DI for -- Discomforts and Remedies, DI for Vaginal Bleeding During Activity Restrictions/Additional Instructions: *You have been diagnosed with vaginal bleeding with *What to do: At this time you are currently 9 weeks , due date approximately 05/06/2025 HCG 176,960 No Smoking marijuana or cigarettes no alcohol use *Continue to take medications as directed vitamins daily Continue Prozac but talk with your OB No ibuprofen/NSAIDS If you should have pain or discomfort okay to take Tylenol 1000 mg every 6 hours Zofran 4 mg every 8 hours only if needed for severe nausea or vomiting--> [facility] *Follow up with your primary care provider in 2-3 days or call [phone] *Return to ER if you should have persistent vomiting dizziness lightheadedness increased vaginal bleeding or any new, worsening or concerning symptoms Prescriptions: New ondansetron 4 mg tablet,disintegrating 4 mg PO Q8H PRN (Reason: nausea and vomiting) Qty: 10 0RF No Action benzonatate 200 mg capsule 200 mg PO BID PRN (Reason: cough) Qty: 28 0RF Referrals: Miscellaneous,Doctor, MD [Primary Care Provider] - Eloina Luna MD [Physician] - Haley Benjamin MD [Physician] - Karon Aaron MD [Physician] - Amy Fraser DO [Physician] - Papo Naik MD [Physician] - Stand Alone Forms: Patient Portal/API/Survey
[2024-10-02 23:45] VITALS: BP 109/66; PULSE 77; RESP 18; O2SAT 95
[2024-10-02] MEDS: SODIUM CHLORIDE 0.9% 1,000 ML 1000 ML IV (23:58)
[2024-10-03] VITALS: BP 112/59; PULSE 73; O2SAT 94
[2024-10-03 00:15] VITALS: BP 103/59; PULSE 77; RESP 17; O2SAT 98
== END 2024-10-03 00:44 | disposition home or self-care (01) ==
PROVIDERS: Emergency Provider Emergency Medicine
DX: O21.9 Vomiting of pregnancy, unspecified (principal); R10.9 Unspecified abdominal pain; F12.90 Cannabis use, unspecified, uncomplicated
CPT/HCPCS: 76801; 80053; 81003; 81015; 81025; 84702; 85025; 86850; 86900; 86901; 96361; 96374; 96376; 99283; 99284; J2405

== ENCOUNTER → 2024-10-19 09:47 | Outpatient (CLI) | payer OTHER, SELFPAY ==
[2024-10-19 14:57] LABS: Urine N gonorrhoeae NOT DETECTED
[2024-10-19 15:42] LABS: Urine Chlamydia NOT DETECTED
== END ==
PROVIDERS: Visit Provider Obstetrics & Gynecology
DX: Z11.3 Encounter for screening for infections with a predominantly sexual mode of transmission (principal)
CPT/HCPCS: 87491; 87591

== ENCOUNTER → 2024-10-19 10:24 | Outpatient (CLI) | payer OTHER, SELFPAY ==
[2024-10-19 11:10] LABS: Add Manual Diff / Slide Review NO; Basophils Absolute Auto 0 /uL (0-100); Basophils Percent Auto 0.7 % (0-2); Eosinophils Absolute Auto 100 /uL (0-450); Hematocrit 36.5 % (36-46); Hemoglobin 12.7 g/dL (12.0-16.0); Lymphocytes Absolute Auto 1100 /uL (1100-4500); Lymphocytes Percent Auto 17.4 % (25-40); Mean Corpuscular HGB Conc 34.8 % (30-36); Mean Corpuscular Hemoglobin 32.3 PG (26-34); Mean Corpuscular Volume 92.8 fL (80-100); Monocytes Absolute Auto 600 /uL (0-900); Monocytes Percent Auto 8.9 % (3-14); Neutrophils Absolute Auto 4500 /uL (1500-7000); Platelet Count 214 X10^3/uL (150-400); Red Blood Cell Count 3.94 X10^6/uL (4.0-5.2); Red Cell Distribution Width 12.5 % (11.6-14.8); White Blood Cell Count 6.3 X10^3/uL (4.5-11.0)
[2024-10-19 11:18] LABS: Hemoglobin A1C% w Est Avg Glu 4.7 % (4.0-6.0)
[2024-10-19 11:31] LABS: Natera Collection Specimen Collected
[2024-10-19 12:07] LABS: Hepatitis B Surface Antigen NEGATIVE s/c (NEGATIVE); Rubella Antibody IgG 13.2 IU/mL (>15)
[2024-10-19 12:20] LABS: HIV 1 & 2 Ab/Ag 4th Gen Combo NEGATIVE (NEGATIVE); Hep C Virus Ab w/Reflex Quant NEGATIVE s/c (NEGATIVE)
[2024-10-20 04:38] LABS: RPR Screen Non Reactive (Non Reactive)
[2024-10-20 09:40] LABS: Varicella IgG Antibody Reactive (Non Reactive)
== END ==
PROVIDERS: PCP Family Medicine; Referring Provider Obstetrics & Gynecology; Visit Provider Obstetrics & Gynecology
DX: Z34.91 Encounter for supervision of normal pregnancy, unspecified, first trimester (principal); E28.2 Polycystic ovarian syndrome
CPT/HCPCS: 36415; 80055; 83036; 86787; 86803; 86850; 86900; 86901; 87389; 87491; 87591

== ENCOUNTER → 2024-10-23 13:49 | Outpatient (CLI) | payer OTHER, SELFPAY ==
[2024-10-23 16:23] LABS: HCG Quantitative /Beta subunit 116540 mIU/mL
== END ==
PROVIDERS: PCP Family Medicine; Referring Provider Family Medicine; Visit Provider Obstetrics & Gynecology
DX: O20.9 Hemorrhage in early pregnancy, unspecified (principal)
CPT/HCPCS: 36415; 84702; 87086

== ENCOUNTER → 2024-12-18 12:00 | Outpatient (CLI) | payer OTHER, SELFPAY ==
--- NOTE | 2024-12-18 12:01 | DI.US.S_ITS ---
PROCEDURE: US OB >= 14 WEEKS FETUS INDICATIONS: anatomy scan OUTSIDE/PRIOR DATING DATA: Last menstrual period (LMP): September 10, 2024. LMP-based estimated date of delivery (MEAGHAN): June 17, 2025. First dating scan (date and location): October 02, 2024. Estimated date of delivery (MEAGHAN) from first dating scan: May 06, 2025. The calculations are made using the ultrasound MEAGHAN of May 06, 2025. TECHNIQUE: Real-time scanning was performed of the fetus, with image documentation and biometric measurements. Endovaginal scanning: Not performed COMPARISON: [facility], OB <= 14 WEEKS FETUS, 10/02/2024, 22:24. FINDINGS: General: A single living intrauterine gestation is present. Presentation: Breech. Placenta: Placental position is anterior fundal , without previa. Amniotic fluid index: 9.8 cm, normal range is 5-24 cm. Single deepest vertical pocket is 3.2 cm. heart rate: 157 beats per minute. Maternal cervical canal: 4.7 cm long. Normal lower limit is 2.5 cm. biometrics: Biparietal diameter: 4.3 cm, 19 weeks and 0 days Head circumference: 17.2 cm, 19 weeks and 5 days Abdominal circumference: 16.0 cm, 21 weeks and 1 day Femur length: 3.2 cm, 20 weeks and 0 days Clinically estimated gestational age: 20 weeks and 1 day Composite gestational age from present scan: 20 weeks and 0 days Estimated weight and percentile: 356 g, 64th percentile Anatomic survey: Neuro: Ventricles are non-dilated at less than 10 mm. Cisterna magna is normal at 3-11 mm. Cerebellum is normal in size and morphology. Nuchal skin fold: Normal at less than 6 mm between 14-21 weeks gestational age. Face: Nose and lips, facial profile are not well visualized. Spine: No evidence for spina bifida. Heart: 4-chambered heart is present, with normal ventricular outflow tracts. 2.2 mm echogenic focus within the interatrial septum. Diaphragm: Diaphragm is intact. Stomach: Left-sided stomach is present. Kidneys: No hydronephrosis. Normal is less than 5 mm in 2nd trimester, less than 7 mm in 3rd trimester. Cord: 3-vessel cord has orthotopic insertion. Bladder: Normal in size. Extremities: All 4 extremities identified. IMPRESSION: Single living intrauterine gestation with estimated sonographic gestational age of approximately 20 weeks and 0 days versus 20 weeks and 1 day by clinical dating. Estimated weight of 356 g which correlates with the 64th percentile for gestational age. The face structures/facial profile were not well visualized. There is a 2.2 mm echogenic focus within the interatrial septum. Follow-up imaging recommended. We strive to produce accurate, complete, and clear reports of imaging services. To assist us in improving patient care, this report was composed using standard report templates and voice recognition software. Therefore, it may contain abnormal punctuation, insertions and/or omissions. Occasional wrong-word or sound-alike substitutions may occur. Though we review the report and make efforts to correct it, we do recommend that the report be read carefully in proper context to recognize any text inaccuracies. Dictated by: Fransisco Berger M.D. on 12/18/2024 at 17:04 Approved by: Fransisco Berger M.D. on 12/18/2024 at 17:09
== END ==
LOC: US 12:00
PROVIDERS: PCP Family Medicine; Referring Provider Family Medicine; Visit Provider Family Medicine
DX: Z34.92 Encounter for supervision of normal pregnancy, unspecified, second trimester (principal); Z3A.20 20 weeks gestation of pregnancy
CPT/HCPCS: 76811

== ENCOUNTER 2025-02-02 13:58 | Outpatient (CLI) | payer OTHER, SELFPAY ==
--- NOTE | 2025-02-02 14:28 | DI.US.S_ITS ---
PROCEDURE: US OB LIMITED INDICATIONS: LT UTERINE PAIN POST SNEEZE The calculations are made using the working MEAGHAN of the 05/06/2020. TECHNIQUE: Real-time scanning was performed of the fetus, with image documentation and biometric measurements. Endovaginal scanning: No COMPARISON: None. FINDINGS: General: A single living intrauterine gestation is present. Presentation: Breech. Placenta: Placental position is fundal , without previa. No abruption Amniotic fluid index: 19.0 cm, normal range is 5-24 cm. Single deepest vertical pocket is 6.4 cm. heart rate: 167 beats per minute. Maternal cervical canal: 3.9 cm long. Normal lower limit is 2.5 cm. Clinically estimated gestational age: 26 week 5 day Other: Not applicable. IMPRESSION: Single live intrauterine consistent with 26 week 5 day gestation. No evidence of complication. Approved by: Vito Sanchez M.D. on 02/02/2025 at 15:44
[2025-02-02 14:41] LABS: Appearance Urine UA CLEAR; Bilirubin Urine UA NEGATIVE (NEGATIVE); Color Urine UA YELLOW; Glucose Urine UA NEGATIVE (Negative); Ketones Urine UA TRACE (NEGATIVE); Leukocyte Esterase Urine UA 1+ (NEGATIVE); Nitrite Urine UA NEGATIVE (Negative); Occult Blood Urine UA NEGATIVE (Negative); Protein Urine UA NEGATIVE (Negative); Specific Gravity Urine UA 1.010 (1.000-1.035); Urobilinogen Urine UA 0.2 E.U./dL (0.2)
[2025-02-02 14:51] LABS: pH Urine UA 6.5 (4.5-8.0)
[2025-02-02 14:57] LABS: Culture Indicated Urine Specimen Cultured
== END 2025-02-02 15:55 | disposition home or self-care (01) ==
LOC: LABOR 15:28 → OB 02-04 10:32
PROVIDERS: PCP Family Medicine; Referring Provider Family Medicine; Visit Provider Family Medicine
DX: O26.92 Pregnancy related conditions, unspecified, second trimester (principal); R10.9 Unspecified abdominal pain; O09.522 Supervision of elderly multigravida, second trimester; O99.332 Smoking (tobacco) complicating pregnancy, second trimester; F17.200 Nicotine dependence, unspecified, uncomplicated; Z3A.26 26 weeks gestation of pregnancy
CPT/HCPCS: 59025; 76815; 81001; 87086; G0378; G0379

== ENCOUNTER → 2025-02-13 12:23 | Outpatient (CLI) | payer OTHER, SELFPAY ==
[2025-02-13 13:56] LABS: Hemoglobin 10.5 g/dL (12.0-16.0)
[2025-02-13 14:24] LABS: GTT (PREG) 1 Hour PP 50gm Dose 135 mg/dL (76-139)
== END ==
PROVIDERS: PCP Family Medicine; Referring Provider Family Medicine; Visit Provider Family Medicine
DX: O09.511 Supervision of elderly primigravida, first trimester (principal)
CPT/HCPCS: 82950; 85018

== ENCOUNTER → 2025-02-28 15:01 | Outpatient (CLI) | payer OTHER, SELFPAY ==
--- NOTE | 2025-02-28 15:02 | DI.US.S_ITS ---
PROCEDURE: US OB LIMITED INDICATIONS: SMALL FOR GESTATIONAL AGE OUTSIDE/PRIOR DATING DATA: Last menstrual period (LMP): 09/10/2024 LMP-based estimated date of delivery (MEAGHAN): 06/17/2025 First dating scan (date and location): 10/02/2024 Estimated date of delivery (MEAGHAN) from first dating scan: 05/06/2025 The calculations are made using the ultrasound MEAGHAN of 05/06/2025 TECHNIQUE: Real-time scanning was performed of the fetus, with image documentation and biometric measurements. Endovaginal scanning: not performed COMPARISON: [facility], OB LIMITED, 02/02/2025, 15:13. FINDINGS: General: A single living intrauterine gestation is present. Presentation: Variable Placenta: Placental position is fundal, without previa. Amniotic fluid index: 12.6 cm, normal range is 5-24 cm. Single deepest vertical pocket is 4.4 cm. heart rate: 143 beats per minute. Maternal cervical canal: 3.3 cm long. Normal lower limit is 2.5 cm. biometrics: Biparietal diameter: 7.5 cm, 30 weeks 1 day Head circumference: 27.9 cm, 30 weeks 4 days Abdominal circumference: 28.7 cm, 32 weeks 5 days Femur length: 5.5 cm, 29 weeks 0 days Clinically estimated gestational age: 30 weeks 3 days Composite gestational age from present scan: 30 weeks 4 days Estimated weight and percentile: 1720 g, 65th percentile IMPRESSION: 1. Single live intrauterine with appropriate interval growth. 2. Estimated weight is at the 65th percentile for gestational age based on prior ultrasound. Approved by: Darrel Holly M.D. on 03/01/2025 at 10:37
== END ==
PROVIDERS: PCP Family Medicine; Referring Provider Family Medicine; Visit Provider Family Medicine
DX: Z34.83 Encounter for supervision of other normal pregnancy, third trimester (principal); Z3A.30 30 weeks gestation of pregnancy
CPT/HCPCS: 76815

== ENCOUNTER 2025-03-16 12:11 | Observation (INO) | payer OTHER, SELFPAY ==
[2025-03-16 16:10] LABS: Appearance Urine UA CLEAR; Bilirubin Urine UA 1+ (NEGATIVE); Color Urine UA YELLOW; Glucose Urine UA NEGATIVE (Negative); Ketones Urine UA 3+ (NEGATIVE); Leukocyte Esterase Urine UA TRACE (NEGATIVE); Nitrite Urine UA NEGATIVE (Negative); Occult Blood Urine UA NEGATIVE (Negative); Protein Urine UA 1+ (Negative); Specific Gravity Urine UA 1.025 (1.000-1.035); Urobilinogen Urine UA 1.0 E.U./dL (0.2)
[2025-03-16 16:22] LABS: pH Urine UA 6.5 (4.5-8.0)
[2025-03-16 16:24] LABS: Culture Indicated Urine Cult Not Indicated; Ictotest Urine Negative (Negative)
--- NOTE | 2025-03-16 16:55 | PM.OBHP.IH.1 ---
OB HPI Date/Time Date of admission: 03/16/25 Date Patient Seen: 03/16/25 Time Patient Seen: 13:00 History of Present Condition Chief complaint: Bleeding, cramping Date of Last Menstrual Period: 09/10/24 MEAGHAN Calculator Estimated Delivery Date Method Current WG Current Estimate 05/06/25 Ultrasound #1 32w 5d Other Estimates 06/17/25 LMP (Uncertain) 26w 5d 05/07/25 Ultrasound #2 32w 4d Estimated Gestational Age (weeks): 32w 5d : 3 Para: 0 Narrative: SAB x 2 care: good care (regular PNC) Dating criteria OB: based on 1st trimester US only Ultrasounds: normal 1st trimester US (CRL and second trimester) and normal mid trimester US Obstetrical complications: labor (current admission) Medical complications OB: gastrointestinal (Crohn's Disease) Narrative: Hasn't seen her GI Dr in years External History : 3 Para: 0 Narrative: Early SAB x 2 Indications Other reason(s) for admission: Threatened Preadmission Labs Last OB Lab Results: Blood Type A Positive 10/19/24, 10:31 Antibody Screen Negative 10/19/24, 10:31 Hct, (36-46) 36.5 % 10/19/24, 10:31 Hgb, (12.0-16.0) 10.5 g/dL L 02/13/25, 12:30 Hep Bs Antigen, (NEGATIVE) Negative s/c 10/19/24, 10:31 Hepatitis C Antibody, (NEGATIVE) Negative s/c 10/19/24, 10:31 Rubella Antibody, (>15) 13.2 IU/mL L 10/19/24, 10:31 VZV IgG Antibody, (Non Reactive) Reactive 10/19/24, 10:31 Glucose 1 Hr 50 gm, (76-139) 135 mg/dL 02/13/25, 12:30 Hemoglobin A1c, (4.0-6.0) 4.7 % 10/19/24, 10:31 -: Chlamydia screen: negative, Gonorrhea screen: negative and Urine: positive (3+ketones. Gp Gr 1.025) Genetic Screens: Cell-free DNA: Normal External Labs -: Urine: positive (3+ketones. Gp Gr 1.025) Prior (ies) Past Pregnancies Del. Date GA/Weeks Labor Lgth Wt Sex Route Outcome Anesthesia Place Delv Breastfeed Preg Comp Name 08/14/18 spontaneous Delivery Date: 08/14/18 Last Updated by: Laure Edwards RN hemorrhage, Needed D&C Hx # Term Pregnancies: 0 Hx # Pregnancies: 0 Number of Living Children: 0 Multiple births: 0 Spontaneous abortions: 2 Ectopic pregnancies: 0 Elective abortions: 0 Evaluation Evaluation Baseline heart rate: 140 Variability: Moderate (6-25) monitor accelerations: Present Monitor Decelerations: Absent Contraction Frequency (minutes): 6 Uterine Contraction Intensity: Mild Category of Tracing: Reactive Status: Category l Dilation (cm): 0 Effacement (%): 0 Dilation: Closed Effacement: 0-30% station: -4 Position of cervix: mid Consistency: soft Chery score: 3 Non-invasive Membranes Rupture Test: negative [facility] Medical History (Updated 12/19/24 @ 11:02 by Eloina Luna MD) Radicular pain of right upper extremity (07/14/15) Radiculopathy affecting upper extremity Incomplete Surgical History [place] teeth removed History of spinal surgery (~12/12/23) Anesthesia History of right oophorectomy (~2006) Family History Grandfather Diabetes mellitus Grandmother Breast cancer Aunt Diabetes mellitus Father Polysubstance abuse Homelessness Family estrangement Sister Cervical spine degeneration Social History marital status: unmarried,living together number of children: 0 household members: significant other lives independently: Yes caregiver/support person: No housing: other (mobile home) pets and animals: Yes (dog) education level: high school occupational status: employed current occupational exposures/hazards: No special pat needs: No travel history: over 6 months ago seatbelt use: always water heater temp set < 120 deg: Yes working smoke detector in home: Yes fire extinguisher in home: Yes carbon monox detector in home: Yes firearms in home: No do you feel safe at home: Yes Tobacco: How many years used: 17 quit status: considering quitting second hand exposure: Yes (s/o also smokes) alcohol intake: former (very occasionally) substance use type: marijuana (agrees not to use while /) during the past year weight has: remained stable well-balanced diet: about half the time daily servings fruits/ve-4 caffeine: Yes (down to 2 cups coffee in AM) Type(s) of exercise: walking frequency: daily Meds Home Medications and Allergies Home Medications ?Medication ?Instructions ?Recorded ?Confirmed ?Type [id number] 400 mcg-om3 35 mg-dha 25 tab PO 10/18/24 03/13/25 History mg-epa 5 mg-fish oil chewable tablet fluoxetine 20 mg capsule (Prozac) 20 mg PO DAILY 10/18/24 03/13/25 History aspirin 81 mg tablet,delayed 81 mg PO DAILY #30 tabs 10/19/24 03/13/25 Rx release ondansetron 4 mg disintegrating 4 mg PO Q6H PRN nausea and 10/19/24 03/13/25 Rx tablet vomiting #30 tabs cephalexin 500 mg capsule 500 mg PO BID #10 caps 02/02/25 03/13/25 Rx Allergies Allergy/AdvReac Type Severity Reaction Status Date / Time doxycycline (DOXYCYCLINE) Allergy Unknown dyspnea, Verified 03/13/25 13:57 rash latex (LATEX) Allergy Unknown itchy, Verified 03/13/25 13:57 hives Sulfa (Sulfonamide Allergy Unknown dyspnea, Verified 03/13/25 13:57 Antibiotics) (SULFA rash (SULFONAMIDE ANTIBIOTICS)) codeine (CODEINE) AdvReac Intermediate nausea Verified 03/13/25 13:57 Review of Systems Review of Systems Narrative: several days nausea with vomiting, States this i not like her usual Croh'ns Flare ROS: Yes All systems reviewed with the patient and are negative except as otherwise documented Constitutional Constitutional: Reports as per HPI Eyes Eyes: Reports as per HPI ENT Ears, Nose, Mouth, and Throat: Yes as per HPI Cardiovascular Cardiovascular: Reports as per HPI Respiratory Respiratory: Reports as per HPI Gastrointestinal Gastrointestinal: Reports system reviewed and no additional complaints, except as documented and Reports abdominal pain Genitourinary Genitourinary: Reports as per HPI Musculoskeletal Musculoskeletal: Reports system reviewed and no additional complaints, except as documented Integumentary/Breasts Comments: NE Neurologic Neurologic: Reports as per HPI Psychiatric Psychiatric: Reports anxiety Endocrine Endocrine: Reports system reviewed and no additional complaints, except as documented Hematologic/Lymphatic Hematologic/Lymphatic: Reports as per HPI Allergic/Immunologic Allergic/Immunologic: Reports as per HPI OB Exam Vital signs Blood Pressure: 122/75 Pulse Rate: 90 Narrative Exam Narrative: Intermittent distress with contractions HENMT Head: normal to inspection Eyes General: appearance normal, both eyes and all related structures (Eye muscles abnormal bilaterally) Resp Effort & Inspection: normal respiratory effort Cardio Rate: regular rate Rhythm: regular rhythm Heart Sounds: S1 normal Extremities Lower extremity: Yes normal to inspection GI Inspection: normal to inspection Palpation: Yes soft Auscultation: normal bowel sounds External Female Exam: Yes normal external appearance Speculum Exam - Cervix: normal appearance of the cervix and closed Bimanual Exam- Vagina & Uterus: tender OB/External & Speculum: external exam normal Uterus Location (Fundal Height): 30 Presentation: full/complete breech Estimated Weight (lbs): 5 Objective Labs Labs: Laboratory Results - last 24 hr 03/16/25 15:45 Urine Color Yellow Urine Appearance Clear Urine pH 6.5 Ur Specific Reading 1.025 Urine Protein 1+ H Urine Glucose (UA) Negative Urine Ketones 3+ H Urine Occult Blood Negative Urine Nitrate Negative Urine Bilirubin 1+ H Ur Bilirubin Confirm Negative Urine Urobilinogen 1.0 Ur Leukocyte Esterase Trace H Urine RBC None seen Urine WBC 0-1/hpf Ur Squamous Epith Cells 1-5 /hpf Urine Bacteria Occasional (0-1) Urine Mucus 1+ H Ur Culture Indicated? Cult not indicated Vol Urine Centrifuged 10ml (spun) Assessment and Plan Assessment and Plan Assessment and Plan narrative: Patient noted to have persistent painful contractions, no additional bleeding. IV hydration provided given dehydration on admission. Despited reassuring initial cervical exam , feel risk factors significant ( IDD, low initial BMI, smoker) feel patient should be admitted for further observation. Given status decision made to transfer to facility with Level 3 nursery. Discussed with on-call MFM fellow , Dr Grey who agrees to accept patient by ambulance transport, Risk of transfer discusse with patient, including remote risk of delivery an route, hemorrhage, distress, Time-Based Coding :: [TOTAL MINUTES] spent with patient and on the chart (including review of chart, obtaining history, exam, reviewing outside data, placing orders, documenting exam and treatment plan, and counseling patient) on [DATE]. 60
[2025-03-16] MEDS: fentaNYL 100 MCG/2 ML INJ 50 MCG IV ×2 (17:10→18:25)
[2025-03-16 17:45] VITALS: BP 122/75; PULSE 90
== END 2025-03-16 18:40 | disposition short-term general hospital (02) ==
LOC: LABOR 12:13
PROVIDERS: Admitting Provider Specialist; PCP Family Medicine; Referring Provider Specialist; Visit Provider Specialist
DX: O60.03 Preterm labor without delivery, third trimester (principal); O46.93 Antepartum hemorrhage, unspecified, third trimester; O26.893 Other specified pregnancy related conditions, third trimester; E86.0 Dehydration; Z3A.32 32 weeks gestation of pregnancy
CPT/HCPCS: 36415; 59050; 81001; 84112; 87210; 87491; 87563; 87591; 96360; 99234; G0378; G0379; J3010

== ENCOUNTER → 2025-03-27 14:26 | Outpatient (CLI) | payer OTHER, SELFPAY ==
[2025-03-27 16:38] LABS: Alanine Aminotransferase 43 IU/L (<35); Albumin 3.6 g/dL (3.5-5.0); Albumin Globulin Ratio 1.2 (1.0-2.8); Alkaline Phosphatase 188 U/L (38-126); Blood Urea Nitrogen 6 mg/dL (7-17); Calcium 8.8 mg/dL (8.4-10.2); Carbon Dioxide 19 mmol/L (22-32); Chloride 108 mmol/L (98-107); Estimated Glomerular Filt Rate > 60 mL/min (>60); Globulin 3.1 g/dL (1.7-4.1); Glucose 66 mg/dL (70-99); HEMOLYSIS < 15 (0-50); Potassium 4.0 mmol/L (3.4-5.1); Sodium 134 mmol/L (137-145); Total Protein 6.7 g/dL (6.3-8.2)
== END ==
PROVIDERS: PCP Family Medicine; Referring Provider Family Medicine; Visit Provider Family Medicine
DX: Z34.80 Encounter for supervision of other normal pregnancy, unspecified trimester (principal); L29.9 Pruritus, unspecified
CPT/HCPCS: 36415; 80053; 82239

== ENCOUNTER 2025-04-01 12:49 | Outpatient (CLI) | payer OTHER, SELFPAY | END 2025-04-01 13:31 | disposition home or self-care (01) | LOC: LABOR 13:23 → OB 14:28 | PROVIDERS: PCP Family Medicine; Referring Provider Family Medicine; Visit Provider Family Medicine | DX: O09.523 Supervision of elderly multigravida, third trimester (principal); O99.283 Endocrine, nutritional and metabolic diseases complicating pregnancy, third trimester; E28.2 Polycystic ovarian syndrome; O99.891 Other specified diseases and conditions complicating pregnancy; N80.9 Endometriosis, unspecified; Z3A.35 35 weeks gestation of pregnancy | CPT/HCPCS: 59025; G0378; G0379 ==

== ENCOUNTER 2025-04-04 17:13 | Inpatient (IN) | payer OTHER, SELFPAY ==
--- NOTE | 2025-04-04 18:45 | DI.US.S_ITS ---
PROCEDURE: US OB BIOPHYSICAL PROFILE INDICATIONS: IHCP OUTSIDE/PRIOR DATING DATA: The calculations are made using the MEAGHAN of 05/06/2025. TECHNIQUE: Real-time scanning was performed of the fetus for biophysical profile, with image documentation. Color and pulse Doppler interrogation was also performed of the umbilical artery near its insertion into the placenta. Endovaginal scanning: Not performed COMPARISON: [facility], , OB LIMITED, 02/28/2025, 15:53. FINDINGS: General: A single living intrauterine gestation is present. Presentation: Breech. Placenta: Placental position is fundal , without previa. Amniotic fluid index: 20.3 cm, normal range is 5-24 cm. Single deepest vertical pocket is 7.9 cm. heart rate: 135 beats per minute. Maternal cervical canal: 3.1 cm long. Normal lower limit is 2.5 cm. Clinically estimated gestational age: 35 weeks, 3 days Biophysical profile: Tone: 2 points. Movement: 2 points. Respiration: 2 points. Largest pocket of fluid: 2 points. IMPRESSION: Single live intrauterine consistent with 35 weeks and 3 days. Normal biophysical profile. We strive to produce accurate, complete, and clear reports of imaging services. To assist us in improving patient care, this report was composed using standard report templates and voice recognition software. Therefore, it may contain abnormal punctuation, insertions and/or omissions. Occasional wrong-word or sound-alike substitutions may occur. Though we review the report and make efforts to correct it, we do recommend that the report be read carefully in proper context to recognize any text inaccuracies. Dictated by: Awais Walker M.D. on 04/04/2025 at 20:23 Approved by: Awais Walker M.D. on 04/04/2025 at 20:24
[2025-04-04 18:48] LABS: Add Manual Diff / Slide Review NO; Hematocrit 31.7 % (36-46); Hemoglobin 10.7 g/dL (12.0-16.0); Lymphocytes Absolute Auto 1700 /uL (1100-4500); Mean Corpuscular HGB Conc 33.9 % (30-36); Mean Corpuscular Hemoglobin 31.3 PG (26-34); Mean Corpuscular Volume 92.5 fL (80-100); Platelet Count 249 X10^3/uL (150-400)
--- NOTE | 2025-04-04 18:51 | PM.OBHP.IH.1 ---
OB HPI Date/Time Date of admission: 04/04/25 Date Patient Seen: 04/04/25 Time Patient Seen: 19:00 History of Present Condition Chief complaint: INDUCTION, IHCP MEAGHAN Calculator Estimated Delivery Date Method Current WG Current Estimate 05/06/25 Ultrasound #1 35w 4d Other Estimates 06/17/25 LMP (Uncertain) 29w 4d 05/07/25 Ultrasound #2 35w 3d Estimated Gestational Age (weeks): 35w3d : 2 Narrative: 39 yo presenting at 35w3d for mIOL for IHCP with rising bile acids. She noted development of full body itching 2 weeks ago, bile acids were obtained and were 29 with slightly elevated LFTs. She was started on ursadiol. Itching continued to worsen so bile acids repeated and had risen to 95 with continued increase in LFTs. Based on rapidly worsening LFTS and bile acids, decision made to induce. On arrival she is found to be breech. After discussion about option, pt elects to proceed with primary LTCS. NST reassuring and reactive. Of note, pt does have hx of previous unilateral salpingoophorectomy in 2006 with and external midline incision but no uterine instrumentation. also complicated by tobacco use in , echogenic intracardiac foci with nml cfDNA, Crohns Dz, PCOS, recurrent tooth abscess requiring Abx, and AMA on ASA care: good care Dating criteria OB: based on 1st trimester US only Ultrasounds: normal 1st trimester US and normal mid trimester US Obstetrical complications: other (IHCP) Indications Indication for induction OB: medical complication (IHCP) Operative indications ( section): breech presentation Preadmission Labs Last OB Lab Results: Blood Type A Positive 04/04/25, 18:01 Antibody Screen Negative 04/04/25, 18: Hct, (36-46) 31.7 % L 04/04/25, 18: Hgb, (12.0-16.0) 10.7 g/dL L 04/04/25, 18: Hep Bs Antigen, (NEGATIVE) Negative s/c 10/19/24, 10:31 Hepatitis C Antibody, (NEGATIVE) Negative s/c 10/19/24, 10:31 Rubella Antibody, (>15) 13.2 IU/mL L 10/19/24, 10:31 VZV IgG Antibody, (Non Reactive) Reactive 10/19/24, 10:31 Glucose 1 Hr 50 gm, (76-139) 135 mg/dL 02/13/25, 12:30 Hemoglobin A1c, (4.0-6.0) 4.7 % 10/19/24, 10:31 Glucose Tolerance Testin hr (135) -: Chlamydia screen: negative, Gonorrhea screen: negative and Urine: negative Genetic Screens: Cell-free DNA: Normal External Labs -: Urine: negative Prior (ies) Past Pregnancies Del. Date GA/Weeks Labor Lgth Wt Sex Route Outcome Anesthesia Place Delv Breastfeed Preg Comp Name 08/14/18 spontaneous Delivery Date: 08/14/18 Last Updated by: Laure Edwards RN hemorrhage, Needed D&C Evaluation Evaluation Baseline heart rate: 135 Variability: Moderate (6-25) monitor accelerations: Present Monitor Decelerations: Absent Contraction Frequency (minutes): 0 Category of Tracing: Reactive Status: Category l PFSH Medical History (Updated 04/01/25 @ 19:47 by Eloina Luna MD) Intrahepatic cholestasis of Radicular pain of right upper extremity (07/14/15) Radiculopathy affecting upper extremity Incomplete Surgical History [place] teeth removed History of spinal surgery (~12/12/23) Anesthesia History of right oophorectomy (~2006) Family History Grandfather Diabetes mellitus Grandmother Breast cancer Aunt Diabetes mellitus Father Polysubstance abuse Homelessness Family estrangement Sister Cervical spine degeneration Social History marital status: unmarried,living together number of children: 0 household members: significant other lives independently: Yes caregiver/support person: No housing: other (mobile home) pets and animals: Yes (dog) education level: high school occupational status: employed current occupational exposures/hazards: No special pat needs: No travel history: over 6 months ago seatbelt use: always water heater temp set < 120 deg: Yes working smoke detector in home: Yes fire extinguisher in home: Yes carbon monox detector in home: Yes firearms in home: No do you feel safe at home: Yes Tobacco: How many years used: 17 quit status: considering quitting second hand exposure: Yes (s/o also smokes) alcohol intake: former (very occasionally) substance use type: marijuana (agrees not to use while /) during the past year weight has: remained stable well-balanced diet: about half the time daily servings fruits/ve-4 caffeine: Yes (down to 2 cups coffee in AM) Type(s) of exercise: walking frequency: daily Meds Home Medications and Allergies Home Medications ?Medication ?Instructions ?Recorded ?Confirmed ?Type [id number]-[id number] 400 mcg-om3 35 mg-dha 25 tab PO 10/18/24 03/13/25 History mg-epa 5 mg-fish oil chewable tablet fluoxetine 20 mg capsule (Prozac) 20 mg PO DAILY 10/18/24 03/13/25 History aspirin 81 mg tablet,delayed 81 mg PO DAILY #30 tabs 10/19/24 03/13/25 Rx release ondansetron 4 mg disintegrating 4 mg PO Q6H PRN nausea and 10/19/24 03/13/25 Rx tablet vomiting #30 tabs cephalexin 500 mg capsule 500 mg PO BID #10 caps 02/02/25 03/13/25 Rx hydroxyzine pamoate 25 mg capsule 25 mg PO TID PRN for anxiety or 03/27/25 03/27/25 Rx (Vistaril) itching #60 caps ursodiol 500 mg tablet 500 mg PO BID #60 tabs 04/01/25 04/01/25 Rx Allergies Allergy/AdvReac Type Severity Reaction Status Date / Time doxycycline (DOXYCYCLINE) Allergy Unknown dyspnea, Verified 03/13/25 13:57 rash latex (LATEX) Allergy Unknown itchy, Verified 03/13/25 13:57 hives Sulfa (Sulfonamide Allergy Unknown dyspnea, Verified 03/13/25 13:57 Antibiotics) (SULFA rash (SULFONAMIDE ANTIBIOTICS)) codeine (CODEINE) AdvReac Intermediate nausea Verified 03/13/25 13:57 Review of Systems Review of Systems Narrative: - regular contractions - LOF + movement - vaginal bleeding + itching, full body OB Exam Vital signs Blood Pressure: 113/76 Pulse Rate: 107 Temperature: 97.6 F Narrative Exam Narrative: GEN: itching throughout visit Pulm: breathing comfortably on RA ABd: gravid MSK: laying in bed, moving all extremities neuro: non-focal Objective Labs 04/04/25 18:01 04/04/25 18:01 Labs: Laboratory Results - last 24 hr 04/04/25 18:01 WBC 11.2 H RBC 3.42 L Hgb 10.7 L Hct 31.7 L MCV 92.5 MCH 31.3 MCHC 33.9 RDW 13.5 Plt Count 249 Neut % (Auto) 72.3 Lymph % (Auto) 14.8 L [place] % (Auto) 11.8 Eos % (Auto) 0.6 L Baso % (Auto) 0.5 Neut # (Auto) 8100 H Lymph # (Auto) 1700 [place] # (Auto) 1300 H Eos # (Auto) 100 Baso # (Auto) 100 Assessment and Plan Assessment and Plan Assessment and Plan narrative: 39 yo presenting at 35w3d due to IHCP with rapidly rising bile acids and LFTS. Of note, pt does have hx of previous unilateral salpingoophorectomy in 2006 with and external midline incision but no uterine instrumentation. also complicated by tobacco use in , echogenic intracardiac foci with nml cfDNA, Crohns Dz, PCOS, recurrent tooth abscess requiring Abx, and AMA on ASA. Due to rising bile acids decision made to induce now rather than wait for 36 weeks. on arrival, pt breech. After long discussion about ECV vs primary LTCS, pt prefers pLTCS. Will obtain BPP, if nml will plan for CS first thing in the AM. If abnml, will CS overnight. Due to previous abd surgery, would prefer to complete surgery during daytime with available backup in house in the event of complications. # SIUP # IHCP: - admit to LD - continuous monitoring - Anesthesia consult - CBC, TS - breech by bedside US - ECV counseling, pt elects for pLTCS - GBS negative - BPP now - continue Ursadiol 500mg BID - PRN Benadryl fo ritching and insomnia # Tobacco use in - awareness - nicotine replacement #AMA: - nml cfDNA # Echogenic intracardiac foci: - cfDNA nml counseling: It was explained to the patient that a section is a surgery to deliver the baby through an incision in the abdominal wall and uterus.? All procedures can be associated with risk and unforeseen complications, which can be immediate or delayed.? Risks and complications of section include, but are not limited to:? infection of the uterus, pelvic organs, or skin; inadvertent injury to internal organs such as the bowel, bladder, or possibly even the baby; blood loss, transfusion, and/or life-threatening hemorrhage requiring hysterectomy; blood clots in the legs, pelvic organs, or lungs; adverse reaction to medications or anesthesia during surgery; development of placenta accreta spectrum in a subsequent ; and increased risk of section in a subsequent . Time-Based Coding :: [TOTAL MINUTES] spent with patient and on the chart (including review of chart, obtaining history, exam, reviewing outside data, placing orders, documenting exam and treatment plan, and counseling patient) on [DATE].
[2025-04-04 19:21] LABS: Alanine Aminotransferase 68 IU/L (<35); Albumin 3.7 g/dL (3.5-5.0); Albumin Globulin Ratio 1.1 (1.0-2.8); Alkaline Phosphatase 219 U/L (38-126); Blood Urea Nitrogen 7 mg/dL (7-17); Calcium 9.0 mg/dL (8.4-10.2); Carbon Dioxide 18 mmol/L (22-32); Chloride 109 mmol/L (98-107); Estimated Glomerular Filt Rate > 60 mL/min (>60); Globulin 3.5 g/dL (1.7-4.1); Glucose 82 mg/dL (70-99); HEMOLYSIS < 15 (0-50); Potassium 3.8 mmol/L (3.4-5.1); Sodium 135 mmol/L (137-145); Total Protein 7.2 g/dL (6.3-8.2)
[2025-04-04 20:11] VITALS: BP 113/76
[2025-04-04] MEDS: diphenhydrAMINE 25 MG TABLET 50 MG PO (22:06)
[2025-04-04] MEDS: ZOLPIDEM 5 MG TABLET PO (23:36)
[2025-04-05] MEDS: ZOLPIDEM 5 MG TABLET PO (02:50)
[2025-04-05] MEDS: diphenhydrAMINE 25 MG TABLET 50 MG PO (03:18)
[2025-04-05 06:57] VITALS: BP 113/76; PULSE 107; TEMP 36.4
--- NOTE | 2025-04-05 07:15 | PM.OBHP.IH.1 ---
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 She noted development of full body itching 2 weeks ago, bile acids were obtained and were 29 with slightly elevated LFTs. She was started on ursadiol. Itching continued to worsen so bile acids repeated and had risen to 95 with continued increase in LFTs. Based on rapidly worsening LFTS and bile acids, decision made to induce. On arrival she is found to be breech. After discussion about option, pt elects to proceed with primary LTCS. NST reassuring and reactive. Of note, pt does have hx of previous unilateral salpingoophorectomy in 2006 with and external midline incision but no uterine instrumentation. also complicated by tobacco use in , echogenic intracardiac foci with nml cfDNA, Crohns Dz, PCOS, recurrent tooth abscess requiring Abx, and AMA on ASA care: good care Dating criteria OB: based on 1st trimester US only Ultrasounds: normal 1st trimester US and normal mid trimester US Obstetrical complications: other (IHCP) Indications Indication for induction OB: medical complication (IHCP) Operative indications ( section): breech presentation Preadmission Labs Last OB Lab Results: Blood Type A Positive 04/04/25, 18:01 Antibody Screen Negative 04/04/25, 18: Hct, (36-46) 31.7 % L 04/04/25, 18: Hgb, (12.0-16.0) 10.7 g/dL L 04/04/25, 18: Hep Bs Antigen, (NEGATIVE) Negative s/c 10/19/24, 10:31 Hepatitis C Antibody, (NEGATIVE) Negative s/c 10/19/24, 10:31 Rubella Antibody, (>15) 13.2 IU/mL L 10/19/24, 10:31 VZV IgG Antibody, (Non Reactive) Reactive 10/19/24, 10:31 Glucose 1 Hr 50 gm, (76-139) 135 mg/dL 02/13/25, 12:30 Hemoglobin A1c, (4.0-6.0) 4.7 % 10/19/24, 10:31 Glucose Tolerance Testin hr (135) -: Chlamydia screen: negative, Gonorrhea screen: negative and Urine: negative Genetic Screens: Cell-free DNA: Normal External Labs -: Urine: negative Prior (ies) Past Pregnancies Del. Date GA/Weeks Labor Lgth Wt Sex Route Outcome Anesthesia Place Delv Breastfeed Preg Comp Name 08/14/18 spontaneous Delivery Date: 08/14/18 Last Updated by: Laure Edwards RN hemorrhage, Needed D&C Evaluation Evaluation Baseline heart rate: 135 Variability: Moderate (6-25) monitor accelerations: Present Monitor Decelerations: Absent Contraction Frequency (minutes): 0 Category of Tracing: Reactive Status: Category l PFSH Medical History (Updated 04/01/25 @ 19:47 by Eloina Luna MD) Intrahepatic cholestasis of Radicular pain of right upper extremity (07/14/15) Radiculopathy affecting upper extremity Incomplete Surgical History [place] teeth removed History of spinal surgery (~12/12/23) Anesthesia History of right oophorectomy (~2006) Family History Grandfather Diabetes mellitus Grandmother Breast cancer Aunt Diabetes mellitus Father Polysubstance abuse Homelessness Family estrangement Sister Cervical spine degeneration Social History marital status: unmarried,living together number of children: 0 household members: significant other lives independently: Yes caregiver/support person: No housing: other (mobile home) pets and animals: Yes (dog) education level: high school occupational status: employed current occupational exposures/hazards: No special pat needs: No travel history: over 6 months ago seatbelt use: always water heater temp set < 120 deg: Yes working smoke detector in home: Yes fire extinguisher in home: Yes carbon monox detector in home: Yes firearms in home: No do you feel safe at home: Yes Tobacco: How many years used: 17 quit status: considering quitting second hand exposure: Yes (s/o also smokes) alcohol intake: former (very occasionally) substance use type: marijuana (agrees not to use while /) during the past year weight has: remained stable well-balanced diet: about half the time daily servings fruits/ve-4 caffeine: Yes (down to 2 cups coffee in AM) Type(s) of exercise: walking frequency: daily Meds Home Medications and Allergies Home Medications ?Medication ?Instructions ?Recorded ?Confirmed ?Type POT10-ZG 400 mcg-om3 35 mg-dha 25 tab PO 10/18/24 03/13/25 History mg-epa 5 mg-fish oil chewable tablet fluoxetine 20 mg capsule (Prozac) 20 mg PO DAILY 10/18/24 03/13/25 History aspirin 81 mg tablet,delayed 81 mg PO DAILY #30 tabs 10/19/24 03/13/25 Rx release ondansetron 4 mg disintegrating 4 mg PO Q6H PRN nausea and 10/19/24 03/13/25 Rx tablet vomiting #30 tabs cephalexin 500 mg capsule 500 mg PO BID #10 caps 02/02/25 03/13/25 Rx hydroxyzine pamoate 25 mg capsule 25 mg PO TID PRN for anxiety or 03/27/25 03/27/25 Rx (Vistaril) itching #60 caps ursodiol 500 mg tablet 500 mg PO BID #60 tabs 04/01/25 04/01/25 Rx Allergies Allergy/AdvReac Type Severity Reaction Status Date / Time doxycycline (DOXYCYCLINE) Allergy Unknown dyspnea, Verified 03/13/25 13:57 rash latex (LATEX) Allergy Unknown itchy, Verified 03/13/25 13:57 hives Sulfa (Sulfonamide Allergy Unknown dyspnea, Verified 03/13/25 13:57 Antibiotics) (SULFA rash (SULFONAMIDE ANTIBIOTICS)) codeine (CODEINE) AdvReac Intermediate nausea Verified 03/13/25 13:57 Review of Systems Review of Systems Narrative: - regular contractions - LOF + movement - vaginal bleeding + itching, full body OB Exam Vital signs Blood Pressure: 113/76 Pulse Rate: 107 Temperature: 97.6 F Narrative Exam Narrative: GEN: itching throughout visit Pulm: breathing comfortably on RA ABd: gravid MSK: laying in bed, moving all extremities neuro: non-focal Objective Labs 04/04/25 18:01 04/04/25 18:01 Labs: Laboratory Results - last 24 hr 04/04/25 18:01 WBC 11.2 H RBC 3.42 L Hgb 10.7 L Hct 31.7 L MCV 92.5 MCH 31.3 MCHC 33.9 RDW 13.5 Plt Count 249 Neut % (Auto) 72.3 Lymph % (Auto) 14.8 L [place] % (Auto) 11.8 Eos % (Auto) 0.6 L Baso % (Auto) 0.5 Neut # (Auto) 8100 H Lymph # (Auto) 1700 [place] # (Auto) 1300 H Eos # (Auto) 100 Baso # (Auto) 100 Sodium 135 L Potassium 3.8 Chloride 109 H Carbon Dioxide 18 L BUN 7 Creatinine 0.53 Estimated GFR > 60 BUN/Creatinine Ratio 13.2 Glucose 82 Calcium 9.0 Total Bilirubin 0.5 AST 57 H ALT 68 H Alkaline Phosphatase 219 H Total Protein 7.2 Albumin 3.7 Globulin 3.5 Albumin/Globulin Ratio 1.1 Blood Type A Positive Antibody Screen Negative Assessment and Plan Assessment and Plan Assessment and Plan narrative: 39 yo presenting at 35w4d due to IHCP with rapidly rising bile acids and LFTS. Of note, pt does have hx of previous unilateral salpingoophorectomy in 2006 with and external midline incision but no uterine instrumentation. also complicated by tobacco use in , echogenic intracardiac foci with nml cfDNA, Crohns Dz, PCOS, recurrent tooth abscess requiring Abx, and AMA on ASA. Due to rising bile acids decision made to induce now rather than wait for 36 weeks. on arrival, pt breech. After long discussion about ECV vs primary LTCS, pt prefers pLTCS.BPP nml last night. Plan for 10am CS this Am # SIUP # IHCP: - admit to LD - continuous monitoring - Anesthesia consult - CBC, TS - breech by bedside US - ECV counseling, pt elects for pLTCS - GBS negative - continue Ursadiol 500mg BID - PRN Benadryl for itching and insomnia # Tobacco use in - awareness - nicotine replacement #AMA: - nml cfDNA # Echogenic intracardiac foci: - cfDNA nml counseling: It was explained to the patient that a section is a surgery to deliver the baby through an incision in the abdominal wall and uterus.? All procedures can be associated with risk and unforeseen complications, which can be immediate or delayed.? Risks and complications of section include, but are not limited to:? infection of the uterus, pelvic organs, or skin; inadvertent injury to internal organs such as the bowel, bladder, or possibly even the baby; blood loss, transfusion, and/or life-threatening hemorrhage requiring hysterectomy; blood clots in the legs, pelvic organs, or lungs; adverse reaction to medications or anesthesia during surgery; development of placenta accreta spectrum in a subsequent ; and increased risk of section in a subsequent . Time-Based Coding :: [TOTAL MINUTES] spent with patient and on the chart (including review of chart, obtaining history, exam, reviewing outside data, placing orders, documenting exam and treatment plan, and counseling patient) on [DATE].
[2025-04-05 07:16] VITALS: BP 113/76; PULSE 107; TEMP 36.4
--- NOTE | 2025-04-05 10:43 | SUR.OPER ---
Supine on padded OR bed, head on pillow, arms secured on padded arm boards at <90 degrees abduction, bump to right hip, legs uncrossed, safety belt at thigh, tape over blanket over lower legs.
--- NOTE | 2025-04-05 11:19 | SUR.OPER ---
TIME 1050
[2025-04-05] MEDS: LIDOCAINE 1% 20 ML INJ (11:26)
[2025-04-05 11:51] VITALS: BP 124/58; PULSE 86; RESP 24; TEMP 36.2; O2SAT 100
--- NOTE | 2025-04-05 11:53 | PM.OBCS.1 ---
Operative Date/Time/Diagnoses Date of procedure: 04/05/25 Time of procedure: 10:44 Pre-op diagnosis: IHCP, breech Post-op diagnosis: same Procedure & Clinicians Procedure: primary low trasnverse Same procedure(s) as scheduled: Yes Indications: Breech Surgeon: Eloina Luna Click Yes if Unassisted: No Control Systems Eng: Tamar Hutson Reason for Control Systems Eng: Control Systems Eng required for the safe, effective, and timely completion of this surgery. The wet process miller head assistant was necessary to retract upon entry into the abdomen and uterus. Assisted with delivery of the with fundal pressure. Assisted with closure with retraction, holding suture, and closure of the contralateral fascia. Anesthesia Type: Spinal and Local (10cc Lidocaine 1%) Operative Notes Findings: Large pedunculated R fundal fibroid surgically absent R ovary and fallopian tube nml left ovary and fallopian tube uterine anomaly, L side uterine horn present with with intrauterine pocket placenta with calcifications Closure Type: primary Specimen(s): cord blood Intraoperative meds administered: Duramorph, Ketorolac and Pitocin Applied: Catheter Estimated Blood Loss (mL): 600 Blood products transfused: none Procedure in detail: OPERATIVE COURSE: The patient was taken to the operating room where spinal anesthesia was placed. She was then prepared and draped in the normal sterile fashion in the dorsal supine position with a leftward tilt. Anesthesia was tested and found to be adequate. A Pfannensteil skin incision was then made with the scalpel and carried through to the underlying layer of fascia with the scalpel. The fascia was incised in the midline and the incision extended laterally bluntly. The superior aspect of the fascial incision was then grasped with Sigrid clamps, elevated with the help of the regional vice president surgical sales, and the underlying rectus muscles dissected off bluntly and sharply where needed. Attention was then turned to the inferior aspect of the incision which, in a similar fashion, was grasped, tented up with Sigrid clamps, and the rectus muscle dissected off bluntly and sharply with scalpel. The rectus muscles were then in the midline, and the peritoneum was identified and entered bluntly. The peritoneal incision was then extended with good visualization of the bladder. The Angus retractor was placed and the lower uterine segment incised in a transverse fashion with the scalpel, with the regional vice president surgical sales providing suction. The uterine incision was then extended superolaterally by pulling superolaterally on both sides. Membranes were ruptured and fluid was clear. The breech was elevated to the level of the hysterotomy. The breech was then easily delivered with fundal pressure. The long bones of the lower extremities were splinted and delivered atraumatically. The fetus was delivered to the level of the axilla. The anterior upper extremity was then swept across the chest and delivered atraumatically. The infant was then rotated 45 degrees and the other upper extremity was delivered in a similar fashion atraumatically. The head was then flexed and delivered using a modified Mauriceau?Smellie?Veit maneuver and delivered easily. The nose and mouth were suctioned with bulb suction and the cord was clamped and cut afer a 60 second delay. The was handed off to the waiting nursing staff. Cord blood was collected. Time of delivery was 11:50. APGARS were 9 and 9 at one and five minutes respectively. Terminal mec was present. After delivery of the infant, Propofol was administered due to continued pain. The placenta was then delivered with gentle cord traction. The placenta pulled apart into multiple pieces during the proceed of delivering with gentle traction. Retrained placenta was then removed manually. The uterus was found to have a left uterine horn. placenta was manually extracted from this uterine urine. The uterus was then exteriorized and cleared of all clots and debris. The uterine incision was repaired with 0 Vicryl in a running, locked fashion. A second layer of the same suture was used to obtain excellent hemostasis. Angus retractor was removed. The uterus was returned to the abdomen. The gutters were cleared of all clots. Hysterotomy was investigated and found to be hemostatic. The peritoneum was closed with 3-0 vicryl. The fascia was reapproximated with 0 Vicryl in a running fashion. The subcutaneous tissue was reapproximated with 3-0 vicryl. Lidocaine was added to the incision due to return of pain. The skin was closed with 4-0 monocryl. The regional vice president surgical sales helped with retraction during closures. SPONGE AND NEEDLE COUNTS: Correct x3. DRESSING: Aquacel ANTICOAGULATION: SCDs applied prior to Surgery Preop antibiotics given (see MAR). The patient was taken to recovery room having tolerated procedure well. Procedures start time: 10:44 Procedure end time: 11:41 Time of delivery: 10:450 Complications: other (retained placenta, manual extraction ) [place] Baby 1: Delivery Date: 04/05/25 Delivery Time: 10:50 Gender: Female Presentation: breech Details: janee Placental Delivery Description: Expressed, Manual Removal, Uterine Exploration and Abnormal Configuration (calcifications, placental tissue shredded on delivery ) Cord Vessel Description: 3 Vessels score (1 min): 9 score (5 min): 9 Post-operative Condition: stable Disposition: PACU Aftercare: routine postop
[2025-04-05 11:56] VITALS: BP 120/63; PULSE 87; RESP 21; O2SAT 100
[2025-04-05] MEDS: ACETAMINOPHEN IV 1,000 MG/100 ML VIAL 400 MG IV (11:58)
[2025-04-05 12:00] VITALS: BP 121/60; PULSE 80; RESP 26; TEMP 36.7; O2SAT 99
[2025-04-05] MEDS: NALBUPHINE 20 MG/ML AMPUL 5 MG IV (14:54)
[2025-04-05] MEDS: KETOROLAC 30 MG/ML VIAL IV ×2 (17:25→23:02)
[2025-04-06] MEDS: KETOROLAC 30 MG/ML VIAL IV (04:56)
[2025-04-06 08:45] LABS: Add Manual Diff / Slide Review NO; Hematocrit 32.0 % (36-46); Hemoglobin 10.9 g/dL (12.0-16.0); Lymphocytes Absolute Auto 1500 /uL (1100-4500); Mean Corpuscular HGB Conc 34.1 % (30-36); Mean Corpuscular Hemoglobin 31.1 PG (26-34); Mean Corpuscular Volume 91.3 fL (80-100); Platelet Count 260 X10^3/uL (150-400)
[2025-04-06 09:01] LABS: Alanine Aminotransferase 63 IU/L (<35); Albumin 3.6 g/dL (3.5-5.0); Albumin Globulin Ratio 1.1 (1.0-2.8); Alkaline Phosphatase 199 U/L (38-126); Blood Urea Nitrogen 8 mg/dL (7-17); Calcium 9.3 mg/dL (8.4-10.2); Carbon Dioxide 25 mmol/L (22-32); Chloride 102 mmol/L (98-107); Estimated Glomerular Filt Rate > 60 mL/min (>60); Globulin 3.4 g/dL (1.7-4.1); Glucose 97 mg/dL (70-99); HEMOLYSIS < 15 (0-50); Potassium 4.2 mmol/L (3.4-5.1); Sodium 135 mmol/L (137-145); Total Protein 7.0 g/dL (6.3-8.2)
[2025-04-06] MEDS: PRENATAL VIT,CALC/IRON/FOLIC 1 TABLET 1 TAB PO (10:18)
--- NOTE | 2025-04-06 10:36 | PM.OBPN.1 ---
Subjective - OB Subjective Patient comments: no complaints and pain well controlled [place] baby status: doing well and nursing well Narrative: Doing well, pain well controlled, ambulating without difficulty. itching still present Date Patient Seen: 04/06/25 Time Patient Seen: 10:36 Interval history: Pt tolerating post-op pain well with oral medications. She is without significant difficulty. She is ambulating. She has voided and is passing flatulus. Exam Vital Signs (past 8 hours): Oxygen Delivery Method Room Air Narrative Exam Narrative: Gen: well appearing, NAD Skin: no rashes or pallor Abd: appropriate post-op tenderness, fundus firm below Umbilicus. Dressing with scant drainage present MSK: no edema Objective Labs 04/06/25 08:38 04/06/25 08:38 Labs: Laboratory Results - last 24 hr 04/06/25 08:38 WBC 17.6 H D RBC 3.50 L Hgb 10.9 L Hct 32.0 L MCV 91.3 MCH 31.1 MCHC 34.1 RDW 13.0 Plt Count 260 Neut % (Auto) 81.1 H Lymph % (Auto) 8.7 L [place] % (Auto) 9.3 Eos % (Auto) 0.3 L Baso % (Auto) 0.6 Neut # (Auto) 24394 H Lymph # (Auto) 1500 [place] # (Auto) 1600 H Eos # (Auto) 0 Baso # (Auto) 100 Sodium 135 L Potassium 4.2 Chloride 102 Carbon Dioxide 25 BUN 8 Creatinine 0.70 Estimated GFR > 60 BUN/Creatinine Ratio 11.4 Glucose 97 Calcium 9.3 Total Bilirubin 0.8 AST 89 H ALT 63 H Alkaline Phosphatase 199 H Total Protein 7.0 Albumin 3.6 Globulin 3.4 Albumin/Globulin Ratio 1.1 Assessment & Plan Plan day: 1 plan OB: routine care, routine postop care and follow up 6 weeks Comments: 39 yo at POD 1 following primary LTCS for breech presentation complicated by IHCP. LFTs downtrending this AM. Hgb increased from prior. No anemia sx. - Pain well controlled on oral medications, continue tylenol, ibuprofen and PRN oxycodone - Bleeding minimal - control plans: TBD - f/up for f/up at 6week PP visit Time-Based Coding :: [TOTAL MINUTES] spent with patient and on the chart (including review of chart, obtaining history, exam, reviewing outside data, placing orders, documenting exam and treatment plan, and counseling patient) on [DATE].
[2025-04-06] MEDS: IBUPROFEN 600 MG TABLET PO ×2 (11:17→17:28)
[2025-04-06] MEDS: ACETAMINOPHEN 325 MG TABLET 650 MG PO ×2 (11:18→17:27)
--- NOTE | 2025-04-06 17:48 | P.DS_ITS ---
Discharge Providers Provider Date of admission: 04/04/25 17:13 Discharge Date: 04/06/25 Primary care physician: Eloina Luna MD Consults: 04/04/25 17:57 Consult to Anesthesiology Urgent Comment: Consulting Provider: Puja Owens Reason for consultation: Epidural 04/05/25 12:13 Consult to Account Review Specialist Routine Comment: Discharge provider: Eloina Luna MD Summary Hospital Course Date Patient Seen: 04/06/25 Time Patient Seen: 10:00 Hospital Course: 39 yo presenting at 35w4d for mIOL for IHCP with rising bile acids. She noted development of full body itching 2 weeks ago, bile acids were obtained and were 29 with slightly elevated LFTs. She was started on ursadiol. Itching continued to worsen so bile acids repeated and had risen to 95 with continued increase in LFTs. Based on rapidly worsening LFTS and bile acids, decision made to induce. On arrival she is found to be breech. After discussion about option, pt elected to proceed with primary LTCS. NST reassuring and reactive. CS was uncomplicated breech delivery. Time of delivery was 11:50. APGARS were 9 and 9 at one and five minutes respectively. Terminal mec was present. After delivery of the infant, Propofol was administered due to continued pain. Retained placenta was noted and required manual extraction. The uterus was found to have a left uterine horn. placenta was manually extracted from this uterine urine. POostpartum course uncomplicated. She is ambulating without difficulty and is voiding and passing gas. Pain s controlled with PO medications. Vitals within normal limits. LFTS downtrending Of note, pt does have hx of previous unilateral salpingoophorectomy in 2007 with and external midline incision but no uterine instrumentation. also complicated by tobacco use in , echogenic intracardiac foci with nml cfDNA, Crohns Dz, PCOS, recurrent tooth abscess requiring Abx, and AMA on ASA Peripartum Data Delivery Method: Section complications: none 1: Gender: Female Disposition of : home Status at Discharge Cognitive/behavioral status at discharge: oriented Functional status at discharge: independent ambulation Time Spent with Patient Time attestation: Total time spent providing and/or coordinating discharge services: Time spent: Less than 30 minutes Objective Labs 04/06/25 08:38 04/06/25 08:38 Labs: Laboratory Results - last 24 hr 04/06/25 08:38 WBC 17.6 H D RBC 3.50 L Hgb 10.9 L Hct 32.0 L MCV 91.3 MCH 31.1 MCHC 34.1 RDW 13.0 Plt Count 260 Neut % (Auto) 81.1 H Lymph % (Auto) 8.7 L [place] % (Auto) 9.3 Eos % (Auto) 0.3 L Baso % (Auto) 0.6 Neut # (Auto) 72074 H Lymph # (Auto) 1500 [place] # (Auto) 1600 H Eos # (Auto) 0 Baso # (Auto) 100 Sodium 135 L Potassium 4.2 Chloride 102 Carbon Dioxide 25 BUN 8 Creatinine 0.70 Estimated GFR > 60 BUN/Creatinine Ratio 11.4 Glucose 97 Calcium 9.3 Total Bilirubin 0.8 AST 89 H ALT 63 H Alkaline Phosphatase 199 H Total Protein 7.0 Albumin 3.6 Globulin 3.4 Albumin/Globulin Ratio 1.1 Exam Vital Signs (past 8 hours): Oxygen Delivery Method Room Air Narrative Exam Narrative: Gen: well appearing, NAD Skin: no rashes or pallor Abd: appropriate post-op tenderness, fundus firm below Umbilicus. Dressing with scant drainage present MSK: no edema Discharge Plan Discharge Plan Patient Disposition: Home Discharge orders & Medications Prescriptions: New oxycodone 5 mg Tablet 5 mg PO Q4H PRN (Reason: Pain, Moderate (4-6)) Qty: 15 0RF Continued hydroxyzine pamoate [Vistaril] 25 mg capsule 25 mg PO TID PRN (Reason: for anxiety or itching) Qty: 60 0RF ursodiol 500 mg tablet 500 mg PO BID Qty: 60 0RF ondansetron 4 mg tablet,disintegrating 4 mg PO Q6H PRN (Reason: nausea and vomiting) Qty: 30 3RF fluoxetine [Prozac] 20 mg capsule 20 mg PO DAILY [id number] oil 400 mcg-35 mg -25 mg-5 mg tablet,chewable PO Discontinued aspirin 81 mg tablet,delayed release (DR/EC) 81 mg PO DAILY Qty: 30 7RF cephalexin 500 mg capsule 500 mg PO BID Qty: 10 0RF Follow up/Referrals: Eloina Luna MD [Primary Care Provider, Family Practice] - 04/10/25 2:00 pm Referral Note: 04/10 @ 2pm for incision check. 05/24/2025 @ 10:45am for 6 week post check. please arrive 15 minutes prior to your scheduled appointment time. Visit Report/Discharge Packet Stand Alone Forms: Patient Portal/API, Stroke Signs & Symptoms Discharge Data Primary Care Provider: Eloina Luna
[2025-04-06 18:01] VITALS: BP 114/71; PULSE 82; RESP 16; TEMP 36.8
== END 2025-04-06 18:55 | disposition home or self-care (01) | DRG 540 ==
PROVIDERS: Admitting Provider Family Medicine; PCP Family Medicine; Referring Provider Family Medicine; Visit Provider Family Medicine
PROC: 10D00Z1 Extraction of Products of Conception, Low, Open Approach (ICD-10-PCS; CPT 59514; principal; 2025-04-05 10:00)
DX: O26.643 Intrahepatic cholestasis of pregnancy, third trimester (principal); Z3A.35 35 weeks gestation of pregnancy; Z37.0 Single live birth; O32.1XX0 Maternal care for breech presentation, not applicable or unspecified; O99.334 Smoking (tobacco) complicating childbirth; F17.200 Nicotine dependence, unspecified, uncomplicated; Z67.10 Type A blood, Rh positive; O35.BXX0 Maternal care for other (suspected) fetal abnormality and damage, fetal cardiac anomalies, not applicable or unspecified; G47.00 Insomnia, unspecified; O99.354 Diseases of the nervous system complicating childbirth; O26.893 Other specified pregnancy related conditions, third trimester; L29.9 Pruritus, unspecified; O34.03 Maternal care for unspecified congenital malformation of uterus, third trimester; Q51.818 Other congenital malformations of uterus; O43.893 Other placental disorders, third trimester; O73.1 Retained portions of placenta and membranes, without hemorrhage; Z90.721 Acquired absence of ovaries, unilateral
CPT/HCPCS: 36415; 59050; 76815; 76819; 80053; 85025; 86850; 86900; 86901; G0379; J0131; J0330; J1100; J1885; J2274; J2300; J2405; J2704; J3010

== ENCOUNTER → 2025-04-09 14:49 | Outpatient (ROUT) | payer OTHER, SELFPAY | PROVIDERS: PCP Family Medicine; Visit Provider Family Medicine | DX: B00.2 Herpesviral gingivostomatitis and pharyngotonsillitis (principal) | CPT/HCPCS: 87255 ==